=== PATIENT | female | born 1980 | race Caucasian/White ===

== ENCOUNTER → 2017-04-23 | Outpatient (CLI) | payer BC ==
[~2017-04-23] MED LIST: CRAN1CAP15; FRRS300 PO; HYDR-5688 PO; LABE100T23 PO; MISCCAP80; PRENTAB65 PO; PRLSR20 PO
== END | disposition home or self-care (01) ==
LOC: C.PAPS 11:15
PROVIDERS: ATTEND Obstetrics & Gynecology
DX: Z01.419 Encounter for gynecological examination (general) (routine) without abnormal findings (principal); N87.0 Mild cervical dysplasia

== ENCOUNTER → 2018-06-20 | Outpatient (CLI) | payer BC ==
[~2018-06-20] MED LIST changes: -LABE100T23 PO; +LABE100T3 PO
== END | disposition home or self-care (01) ==
LOC: C.LAB1850 07:51
PROVIDERS: ATTEND Obstetrics & Gynecology
DX: O16.1 Unspecified maternal hypertension, first trimester (principal); Z3A.00 Weeks of gestation of pregnancy not specified

== ENCOUNTER 2019-01-02 05:30 | Inpatient (IN) ==
--- NOTE | 2018-12-28 14:19 | PAT Medication Instructions ---
Medication Instructions Date of Service December 28, 2018 Home Medications aspirin 81 mg PO DAILY cranberry 400 mg PO DAILY labetalol 100 mg PO BID omeprazole 20 mg PO DAILY [ Vitamin] 1 tab PO DAILY valacyclovir 500 mg PO DAILY ASK your surgeon for instructions aspirin 81 mg PO DAILY DO NOT take the morning of surgery cranberry 400 mg PO DAILY [ Vitamin] 1 tab PO DAILY Take morning of surgery With a small sip of water, OTHERWISE NOTHING TO EAT OR DRINK AFTER MIDNIGHT: labetalol 100 mg PO BID omeprazole 20 mg PO DAILY valacyclovir 500 mg PO DAILY Take evening before surgery labetalol 100 mg PO BID Other Notes If you have any questions please call us at [phone] or [phone] or [phone] or [phone]
--- NOTE | 2018-12-28 16:25 | Anesthesiology Consultation ---
Date of Service December 28, 2018 Assessment & Plan (1) Encounter for pre-operative examination: Chart Review Chart Review: Acceptable Risk for Surgery and Patient seen in Pre Admission Testing Teaching & Discussion Instructed NPO after midnight before surgery, except medications with 15 cc of water. Medication instructions provided according to the PAT guidelines. History Surgery Operation Date: 01/02/19 07:30 Proposed Procedures p Section in LD - Adams Zarate Jr, MD, FACOG Height/Weight Height: 5 ft 4 in Weight: 115.5 kg Allergies Allergy/AdvReac Type Severity Reaction Status Date / Time oxycodone Allergy Intermediate ITCHING Verified 12/21/18 09:36 yellow dye Allergy Intermediate Rash Verified 12/21/18 09:36 lisinopril AdvReac Intermediate COUGH Verified 12/21/18 09:36 Medications Home Medications Medication Instructions Recorded Confirmed Last Taken aspirin 81 mg PO DAILY 12/18/18 12/21/18 12/18/18 08:00 cranberry 400 mg PO DAILY 12/18/18 12/21/18 12/18/18 08:00 labetalol 100 mg PO BID 12/18/18 12/21/18 12/18/18 08:00 omeprazole 20 mg PO DAILY 12/18/18 12/21/18 12/18/18 08:00 vit [id number] 1 tab PO DAILY 12/18/18 12/21/18 12/18/18 08:00 [ Vitamin] valacyclovir 500 mg PO DAILY 12/21/18 12/21/18 Unknown Past Medical History Medical History Acid reflux since age 19- uses Omeprazole daily Anxiety and depression no meds for last few years. last used meds in 2012 Chronic headaches states she gets 3-4/ month and relieved by Tylenol Essential (primary) hypertension Treated for prior to and during . Has been on ASA 81 and Labetolol in Past Surgical History Surgical History Previous section January 31, 2016 [place] teeth removed age 15 Past Anesthesia History No Hx of Anesthesia Complications and No Family Hx of Anesthesia Complications Previous C/S done 2016 at [facility] for D-cels, epidural dosed for spinal anesthesia. Pt reports nausea during C/S but no major complications. History of PONV No Motion Sickness Screening History of Motion Sickness: Yes Social History Smoking Status: Never smoker Do You Dip or Chew Tobacco: No Hx Alcohol Use: No Alcohol Intake Frequency Comment: 0 Hx Substance Use: No substance use type: does not use Exercise / Class Metabolic Activity III < 4 Walking/Shop/Light housework (IN , +SOB with flight of stairs, no CP.) Review of Systems Pt denies any recent chest pain, shortness of breath, palpitations, cough, fever or URI. Physical Exam Vital Signs BP: 111/74 P: 97bpm SPO2: 97% RA T: 98.0 R: 16 Constitutional + obese ENMT Thyromental Distance: > or= 3.5 Finger Breadths (4) Mallampati Class: I Neck normal visual inspection; neck extension not limited Respiratory normal respiratory effort Auscultation: lungs clear to auscultation bilaterally Cardiovascular Rate/Rhythm: regular rate and regular rhythm Heart Sounds: no murmur
--- NOTE | 2018-12-28 17:36 | History and Physical Report ---
DATE OF ADMISSION: 01/02/2019 ADMITTING DIAGNOSES: 1. Complicated at 39 weeks gestational age. 2. Chronic hypertension. 3. Previous section for advanced maternal age. ADMISSION HISTORY: The patient is a 38-year-old 2, para 1 with an EDC of 08 January by dates and first trimester ultrasound who is admitted for repeat section. The patient's first ended in section. She had been counseled on the risks and benefits of an attempted vaginal after and has opted for an elective repeat section. The patient's course is remarkable for chronic hypertension. She has been on labetalol 100 mg b.i.d. throughout the . The patient has been followed with the chronic hypertensive protocol. She has had serial ultrasounds for growth which have been reassuring and she has had normal third trimester testing. Laboratory values for the show a blood type of O positive, antibody negative, rubella immune, hepatitis B negative. She had a negative cell free DNA screening. She had a normal 1 hour Glucola x2 and a negative third trimester beta strep culture. PAST MEDICAL HISTORY: OBSTETRICAL: As above. COOPERATIVE EDUCATION COORDINATOR: Abnormal Pap smear. MEDICAL: Kidney stones, migraine headaches, anxiety, acid reflux. SURGICAL: Colposcopy, wisdom teeth extraction. ALLERGIES: PERCOCET, YELLOW DYES, AND LISINOPRIL. SOCIAL HISTORY: No smoking. FAMILY HISTORY: Noncontributory. REVIEW OF SYSTEMS: As per HPI. ADMISSION PHYSICAL EXAMINATION: GENERAL: Today shows a pleasant female, gravid, in no acute distress. VITAL SIGNS: Blood pressure of 124/76 and a weight of 255 pounds. HEENT EXAMINATION: Unremarkable. NECK: Supple. LUNGS: Clear. HEART: With a regular rhythm and rate. ABDOMEN: Gravid, vertex, positive heart tones, estimated weight of 8 pounds. PELVIC: Shows the cervix to be long, thick and closed. EXTREMITIES: Shows no deep calf tenderness. NEUROLOGIC: Grossly intact. IMPRESSION: A 38-year-old 2, para 1, 39 weeks gestational age for repeat section. PLAN: Risks, benefits and alternatives to the surgery have been discussed. While benefits will be delivery of the infant, the risks are bleeding, infection, inadvertent injury to bowel or bladder. The patient understands this. Permit has been signed and she wishes to proceed.
[2019-01-02] MEDS ORDERED: LACTATED RINGER'S 1,000 ML IV SCH ×3 (05:45→12:35)
[2019-01-02 05:55] LABS: Basophils # (auto) 0.03 K/uL (0-0.2); Basophils % (auto) 0.2 %; Eosinophils # (auto) 0.15 K/uL (0-0.5); Eosinophils % (auto) 1.2 %; Hematocrit (blood only) 36.6 % (37-47); Hemoglobin 12.5 g/dL (12.0-16.0); Immature Granulocytes # (auto) 0.05 K/uL (0.00-0.02); Immature Granulocytes % (auto) 0.4 %; Lymphocytes # (auto) 2.89 K/uL (1.2-3.4); Lymphocytes % (auto) 23.6 %; Mean Corpuscular Volume 94.1 fL (80-100); Monocytes # (auto) 0.72 K/uL (0.11-0.59); Monocytes % (auto) 5.9 %; Neutrophils # (auto) 8.42 K/uL (1.4-6.5); Neutrophils % (auto) 68.7 %; Platelet Count 234 K/uL (130-400); RDW Coefficient of Variation 14.3 % (11.5-14.5); RDW Standard Deviation 48.5 fL (36.4-46.3); Red Blood Count 3.89 M/uL (4.2-5.4); White Blood Count 12.26 K/uL (4.8-10.8)
[2019-01-02 05:56] LABS: Mean Corpuscular Hgb Conc 34.2 g/dL (32-36)
[2019-01-02] MEDS ORDERED: CITRIC ACID/SODIUM CITRATE 15 ML UDC PO SCH ×2 (06:00)
[2019-01-02] MEDS ORDERED: CEFAZOLIN 3,000 MG in DEXTROSE 5% 50 ML IV SCH (06:00)
[2019-01-02] MEDS ORDERED: OXYTOCIN 10 UNITS/ML VIAL ONE ×3 (06:30)
[2019-01-02] MEDS ORDERED: PHENYLEPHRINE HCL 10 MG/ML VIAL ONE (06:30)
[2019-01-02] MEDS ORDERED: ePHEDrine sulfate 50 MG/ML AMP ONE (06:31)
[2019-01-02] MEDS ORDERED: MoRPHine SULFATE PF 1 MG/ML 10 ML AMP/VIAL ONE (06:50)
[2019-01-02] MEDS ORDERED: fentaNYL citrate 100 MCG/2 ML VIAL ONE (06:50)
[2019-01-02] MEDS ORDERED: PROMETHAZINE HCL 12.5 MG in SODIUM CHLORIDE 0.9% 50 ML IV PRN (07:06)
[2019-01-02] MEDS ORDERED: ONDANSETRON INJ 2 MG/ML 2 ML VIAL IV PRN ×2 (07:06→13:29)
[2019-01-02] MEDS ORDERED: PHENYLEPHRINE 100MCG/ML 5ML SYR IV PRN (07:06)
[2019-01-02] MEDS ORDERED: ATROPINE SULFATE 0.1 MG/ML 10ML SYR IV PRN (07:06)
[2019-01-02] MEDS ORDERED: ePHEDrine sulfate 50 MG/ML AMP IV PRN ×3 (07:06→13:29)
--- NOTE | 2019-01-02 07:16 | History & Physical Bridge Note ---
Date of Service January 02, 2019 History & Physical Bridge Note I have examined the patient, reviewed the History & Physical and in the interval since the performance of the History & Physical I have noted the following changes of clinical significance: no changes noted
[2019-01-02] MEDS ORDERED: NALOXONE HCL 0.4 MG/1 ML VIAL/CARP IV PRN ×2 (07:58→13:29)
[2019-01-02] MEDS ORDERED: MEPERIDINE HCL 25 MG/ML CARP IV PRN ×2 (07:58→13:29)
[2019-01-02] MEDS ORDERED: MoRPHine SULFATE PF 1 MG/ML 10 ML AMP/VIAL INT SPINAL ONE ×2 (07:58→13:29)
[2019-01-02] MEDS ORDERED: LACTATED RINGER'S 500 ML IV PRN ×2 (07:58→13:29)
[2019-01-02] MEDS ORDERED: NALBUPHINE HCL INJ 10 MG/ML AMP IV PRN ×2 (07:58→13:29)
[2019-01-02] MEDS ORDERED: DiphenhydrAMINE HCL 50 MG/ML VIAL IV PRN ×2 (07:58→13:29)
[2019-01-02] MEDS ORDERED: NALOXONE HCL 0.08 MG in SYRINGE 1.8 ML IV PRN ×2 (07:58→13:29)
[2019-01-02] MEDS ORDERED: NALOXONE HCL 1 MG in SODIUM CHLORIDE 0.9% 1000ML 1,000 ML IV PRN ×2 (07:58→13:29)
[2019-01-02] MEDS ORDERED: MoRPHine SULFATE 4 MG/ML 1 ML CARP\\VIAL IV PRN (07:58)
[2019-01-02] MEDS ORDERED: DC INTRASPINAL MORPHINE SCH ×2 (08:00→13:30)
[2019-01-02] MEDS ORDERED: SODIUM CHLORIDE 0.9% 1000ML 1,000 ML IV SCH ×2 (08:00→13:30)
[2019-01-02] MEDS ORDERED: NO NARCOTICS OR SEDATIVES SCH ×2 (08:00→13:30)
--- NOTE | 2019-01-02 08:35 | Post Operative Brief Note ---
Immediate Post Op Note v1 Date of Surgery January 02, 2019 Pre & Post Diagnosis Operation Date: 01/02/19 07:30 Pre-Op Diagnosis: Term , previous section. Chronic Hypertension. Post-Op Diagnosis: Same Procedure Operation Date: 01/02/19 07:30 Actual Procedures p Section in LD(Bilateral) - Adams Zarate Jr, MD, FACOG Surgeon Adams Zarate Jr, MD, FACOG [employer] Liza Estimated Blood Loss 800 Findings See Below (Viable female infant, Apgars 9/9, weight 8 lbs 14 oz, gasses pending , normal appearing tubes and ovaries bilaterally) Drains Snow Catheter (inserted after spinal, draining clear yellow urine)
[2019-01-02 09:05] LABS: Base Excess Cord Venous Blood -3.1 mEq/L (-7.7-1.9); CO2 Cord Arterial Blood 73 mmHg (39.1-73.5); Cord Venous Blood HCO3 25 mmol/L (18.4-26.8); Cord Venous Blood PCO2 55 mmHg (30.4-57.2); Cord Venous Blood PO2 29 mmHg (14.1-43.3); Cord Venous Blood pH 7.27 (7.20-7.44); HCO3 Cord Arterial Blood 27 mmol/L (19.7-28.5); pH Cord Arterial Blood 7.19 (7.1-7.38)
[2019-01-02] MEDS: KETOROLAC 30 MG/ML VIAL IV PRN ×3 (10:07→23:54)
[2019-01-02] MEDS: OXYTOCIN 20 UNITS in LACTATED RINGER'S 1,000 ML IV SCH ×2 (10:26→16:57)
--- NOTE | 2019-01-02 10:57 | Anesthesiology Progress Note ---
Date of Service January 02, 2019 Anesthesia Post Procedure Vital Signs Vital Signs: Temp Pulse Resp BP Pulse Ox 01/02/19 10:53 75 93 01/02/19 10:48 78 94 01/02/19 10:43 75 94 01/02/19 10:38 70 93 01/02/19 10:33 79 96 01/02/19 10:32 77 139/89 01/02/19 10:28 76 96 01/02/19 10:23 71 95 01/02/19 10:18 79 92 01/02/19 10:13 75 93 01/02/19 10:10 73 91 01/02/19 10:08 70 96 01/02/19 10:03 77 97 01/02/19 10:02 89 138/81 01/02/19 09:58 74 95 01/02/19 09:53 70 94 01/02/19 09:48 70 95 01/02/19 09:43 82 96 01/02/19 09:38 77 97 01/02/19 09:33 79 97 01/02/19 09:32 81 136/92 01/02/19 09:28 75 96 01/02/19 09:23 80 96 01/02/19 09:22 89 133/88 01/02/19 09:18 83 94 01/02/19 09:13 76 96 01/02/19 09:12 76 130/79 01/02/19 09:08 80 94 01/02/19 09:07 90 86 L 01/02/19 09:02 81 135/74 96 01/02/19 08:57 87 94 01/02/19 08:56 87 90 01/02/19 08:52 73 131/73 96 01/02/19 08:47 78 94 01/02/19 08:43 74 94 01/02/19 08:42 74 128/75 94 01/02/19 05:44 36.6 C 18 01/02/19 05:41 89 121/68 Notes Mental Status: alert / awake / arousable Patient Amnestic to Procedure: Yes Nausea / Vomiting: adequately controlled Pain: adequately controlled Airway Patency, RR, SpO2: stable & adequate BP & HR: stable & adequate Neuraxial Anesthesia: was administered and sensory block is resolving Anesthetic Complications: no major complications apparent Notes: Doing well, no complaints. VSS.
[2019-01-02] MEDS ORDERED: SUPERCREAM 0.870% 15 GM JAR EXT PRN (12:35)
[2019-01-02] MEDS ORDERED: HYDROCORTISONE ACETATE 25 MG SUPP PR PRN (12:35)
[2019-01-02] MEDS ORDERED: OXYTOCIN 20 UNITS in LACTATED RINGER'S 1,000 ML IV SCH (12:35)
[2019-01-02] MEDS ORDERED: DIPHTHERIA/TETANUS/PERTUSSIS 0.5 ML SYR/VIAL IM ONE (12:35)
[2019-01-02] MEDS ORDERED: BENZOCAINE 20% AER SPR 82.5 GM CAN EXT PRN (12:35)
[2019-01-02] MEDS ORDERED: MoRPHine SULFATE 2 MG/ML CARP IV PRN (13:29)
[2019-01-02] MEDS ORDERED: PROMETHAZINE HCL 25 MG in SODIUM CHLORIDE 0.9% 50 ML IV PRN (13:29)
[2019-01-02] MEDS ORDERED: KETOROLAC 30 MG/ML VIAL IV PRN (14:21)
[2019-01-02] MEDS: LABETALOL HCL 100 MG TAB PO SCH (20:31)
--- NOTE | 2019-01-02 23:02 | Operative Report ---
DATE OF OPERATION: 01/02/2019 PREOPERATIVE DIAGNOSES: 1. Term . 2. Previous section. 3. Chronic hypertension of . POSTOPERATIVE DIAGNOSES: 1. Term . 2. Previous section. 3. Chronic hypertension of . PROCEDURE PERFORMED: Repeat low cervical transverse section. SURGEON: Adams Zarate MD [employer] EMBOSSING PRESS OPERATOR: Melinda De Jesus DO ANESTHESIA: Spinal. FINDINGS: Viable female with Apgars of 9 and 9 and weight of 8 pounds 14 ounces. Arterial and venous cord gases are pending. Normal-appearing tubes and ovaries bilaterally. PROCEDURE IN DETAIL: The patient was taken to the operating room. After spinal anesthesia, he was placed in supine position, draped and prepped in the usual fashion. Pfannenstiel-type incision through previous surgical scar was made. Underlying subcutaneous tissue was dissected down to the ventral abdominal fascia, which was nicked and opened in a horizontal manner. Preperitoneal fascia was dissected away until the peritoneal cavity was entered and opened in a vertical manner. Bladder blade was placed. Peritoneum overlying the uterus was elevated, opened in a semi-lunar fashion, the inferior margin of which was taken down creating the bladder flap. The uterus was entered sharply and extended in a semilunar fashion manually for artificial rupture of membranes for clear fluid. Nuchal cord x1 reduced. Baby was delivered. Cord was clamped and cut and the baby was passed off to pediatrics who was in attendance for the delivery. Cord gases and cord blood samples obtained. Placenta was delivered spontaneously and the uterus was exteriorized. The uterine cavity was wiped clean of any residual blood tissue and/or clot. Uterine incision was then closed with 2 layers of 4-0 Vicryl, the first a running locking stitch, the second an imbricating stitch. Hemostasis achieved. The adnexa visualized with description as above. The uterus was returned to the pelvic cavity. The pericolic gutters were cleared bilaterally of any blood tissue and/or clot. Uterine incision was inspected for hemostasis again, which was present. Sponge and needle count was correct at this point the rectus muscles were plicated in the midline with a running 2-0 Vicryl suture. The fascia was closed laterally with a running 0 Vicryl stitch. Subcutaneous tissue was irrigated with warm saline and reapproximated with interrupted 2-0 plain sutures. Skin incision was closed with 4-0 Monocryl subcuticular sutures. Sterile dressing was applied. The patient was taken to recovery room in satisfactory condition. I attest to the content of the Intraoperative Record and any orders documented therein. Any exception s are noted below.
[2019-01-03] MEDS ORDERED: DiphenhydrAMINE HCL 50 MG/ML VIAL IV PRN (01:59)
[2019-01-03] MEDS ORDERED: ONDANSETRON INJ 2 MG/ML 2 ML VIAL IV PRN (01:59)
[2019-01-03] MEDS ORDERED: KETOROLAC 30 MG/ML VIAL IV PRN (01:59)
[2019-01-03] MEDS: ACETAMINOPHEN W/CODEINE #3 1 TAB PO PRN ×2 (04:40→09:04)
--- NOTE | 2019-01-03 06:31 | Obstetrical Progress Note ---
Date of Service <Vipul Diaz MD - Last Filed: 01/03/19 06:31> January 03, 2019 Assessment & Plan <Vipul Diaz MD - Last Filed: 01/03/19 06:31> (1) S/P repeat low transverse : Chelsey is a 38yo who presented at 39+ for repeat c/s now POD#1 - Compression dressing removed during exam. Surgical incision healing well without any dehiscence/warmth/erythema/discharge. - Blood type O+, Ab-, RI, GBS- - Feels well today. Ambulating well. Mosher removed this AM, has not voided since removal. +flatus - Clear liquids last night, tolerated well. Continue to advance diet as tolerated. - without difficulty. - Pain well controlled with ibuprofen 600mg Q4H PRN. - Routine postop care - After discharge will have [address] Zarate. (2) with 39 completed weeks gestation: Subjective <Vipul Diaz MD - Last Filed: 01/03/19 06:31> Ambulation: ambulating normally Voiding: voiding difficulty (mosher removed this morning, has not voided yet since removal) Passing Gas:: Yes Diet Tolerance:: clear liquids Lochia:: Moderate Feeding Type:: breast feeding Current Pain Level(1-10): 5 (improves with rx) Review of Systems Denies fever, chills, sweats Denies shortness of breath, difficulty breathing, chest pain, palpitations, chest pressure. Denies breast pain. Denies dysuria. Denies headache. Physical Exam <Vipul Diaz MD - Last Filed: 01/03/19 06:31> Vital Signs (Past 24 Hours) Last Vital Signs Temp 36.6 C 01/03/19 03:05 Pulse 83 01/03/19 03:05 Resp 18 01/03/19 03:05 BP 102/66 01/03/19 03:05 Pulse Ox 97 01/03/19 03:05 General: Alert, oriented. No acute distress. Cardiac: Regular rate and rhythm, no murmurs/rubs/gallops. Respiratory: Clear to auscultation anterior and posteriorly, no wheezes/rales/ rhonchi. No increased work of breathing. Symmetrical chest rise. No respiratory distress. Abdomen: Soft, nontender, nondistended. Bowel sounds present. Uterus: Uterine fundus firm, palpable 1-2cm below umbilicus. Compression dressing C/D/I, removed during exam. Surgical incision healing well without any dehiscence/warmth/erythema/discharge. Lower Extremities: No lower extremity edema or swelling. No deep calf pain. Florinda's negative bilaterally. <Krista Corrales MD, FACOG - Last Filed: 01/03/19 07:53> Co-Signing Physician Notes Resident Physician Supervision Note: I interviewed and examined the patient. Discussed with Dr. Diaz and agree with findings and plan as documented in the note. Any exceptions or clarifications are listed here: [None] Documented By: Krista Corrales MD, FACOG Resident Activity Tracking <Vipul Diaz MD - Last Filed: 01/03/19 06:31> Resident Involvement: Resident Care Provided Care Provided: Adult Hospital Medicine
[2019-01-03 07:24] LABS: Basophils # (auto) 0.02 K/uL (0-0.2); Basophils % (auto) 0.1 %; Eosinophils # (auto) 0.12 K/uL (0-0.5); Eosinophils % (auto) 0.7 %; Hematocrit (blood only) 32.6 % (37-47); Immature Granulocytes # (auto) 0.06 K/uL (0.00-0.02); Immature Granulocytes % (auto) 0.4 %; Lymphocytes # (auto) 2.55 K/uL (1.2-3.4); Lymphocytes % (auto) 15.6 %; Mean Corpuscular Hgb Conc 33.7 g/dL (32-36); Mean Corpuscular Volume 93.4 fL (80-100); Mean Platelet Volume 9.9 fL (7.4-10.4); Monocytes # (auto) 1.09 K/uL (0.11-0.59); Monocytes % (auto) 6.7 %; Neutrophils # (auto) 12.49 K/uL (1.4-6.5); Neutrophils % (auto) 76.5 %; Platelet Count 243 K/uL (130-400); RDW Coefficient of Variation 14.3 % (11.5-14.5); RDW Standard Deviation 48.4 fL (36.4-46.3); Red Blood Count 3.49 M/uL (4.2-5.4); White Blood Count 16.33 K/uL (4.8-10.8)
--- NOTE | 2019-01-03 08:32 | Anesthesiology Progress Note ---
Date of Service January 03, 2019 Anesthesia Post Procedure Vital Signs Vital Signs: Temp Pulse Pulse Resp BP BP Pulse Ox 01/03/19 03:05 36.6 C 83 18 102/66 97 01/03/19 02:30 18 97 01/03/19 01:30 18 95 01/03/19 00:32 18 96 01/02/19 23:45 36.8 C 84 18 111/70 96 01/02/19 23:10 16 96 01/02/19 22:20 18 95 01/02/19 21:30 16 94 01/02/19 20:40 36.8 C 78 18 123/71 95 01/02/19 20:30 18 95 01/02/19 19:50 20 95 01/02/19 18:50 18 94 01/02/19 17:50 18 96 01/02/19 16:50 20 95 01/02/19 15:45 36.8 C 84 18 130/77 95 01/02/19 15:15 18 96 01/02/19 14:50 18 94 01/02/19 13:50 18 94 01/02/19 12:50 16 93 01/02/19 12:35 36.7 C 79 14 107/62 96 01/02/19 11:50 36.8 C 80 18 124/79 94 01/02/19 11:38 81 93 01/02/19 11:33 80 93 01/02/19 11:32 75 138/78 01/02/19 11:28 77 96 01/02/19 11:23 77 95 01/02/19 11:18 81 96 01/02/19 11:13 75 93 01/02/19 11:08 77 92 01/02/19 11:03 86 93 01/02/19 11:02 76 142/82 H 01/02/19 10:59 34.7 C L 01/02/19 10:58 72 93 01/02/19 10:53 75 93 01/02/19 10:48 78 94 01/02/19 10:43 75 94 01/02/19 10:42 20 01/02/19 10:38 70 93 01/02/19 10:33 79 96 01/02/19 10:32 77 139/89 01/02/19 10:28 76 96 01/02/19 10:23 71 95 01/02/19 10:18 79 92 01/02/19 10:13 75 93 01/02/19 10:12 20 01/02/19 10:10 73 91 01/02/19 10:08 70 96 01/02/19 10:03 77 97 01/02/19 10:02 89 138/81 01/02/19 09:58 74 95 01/02/19 09:53 70 94 01/02/19 09:48 70 95 01/02/19 09:43 82 96 01/02/19 09:42 20 01/02/19 09:38 77 97 01/02/19 09:33 79 97 01/02/19 09:32 81 20 136/92 01/02/19 09:28 75 96 01/02/19 09:23 80 96 01/02/19 09:22 89 20 133/88 01/02/19 09:18 83 94 01/02/19 09:13 76 96 01/02/19 09:12 76 20 130/79 01/02/19 09:08 80 94 01/02/19 09:07 90 86 L 01/02/19 09:02 81 20 135/74 96 01/02/19 08:57 87 94 01/02/19 08:56 87 90 01/02/19 08:52 73 20 131/73 96 01/02/19 08:47 78 94 01/02/19 08:43 74 94 01/02/19 08:42 74 20 128/75 94 Pulse Ox 01/03/19 03:05 01/03/19 02:30 01/03/19 01:30 01/03/19 00:32 01/02/19 23:45 01/02/19 23:10 01/02/19 22:20 01/02/19 21:30 01/02/19 20:40 01/02/19 20:30 01/02/19 19:50 01/02/19 18:50 01/02/19 17:50 01/02/19 16:50 01/02/19 15:45 01/02/19 15:15 01/02/19 14:50 01/02/19 13:50 01/02/19 12:50 01/02/19 12:35 01/02/19 11:50 94 01/02/19 11:38 01/02/19 11:33 01/02/19 11:32 01/02/19 11:28 01/02/19 11:23 01/02/19 11:18 01/02/19 11:13 01/02/19 11:08 01/02/19 11:03 01/02/19 11:02 01/02/19 10:59 01/02/19 10:58 01/02/19 10:53 01/02/19 10:48 01/02/19 10:43 01/02/19 10:42 01/02/19 10:38 01/02/19 10:33 01/02/19 10:32 01/02/19 10:28 01/02/19 10:23 01/02/19 10:18 01/02/19 10:13 01/02/19 10:12 01/02/19 10:10 01/02/19 10:08 01/02/19 10:03 01/02/19 10:02 01/02/19 09:58 01/02/19 09:53 01/02/19 09:48 01/02/19 09:43 01/02/19 09:42 01/02/19 09:38 01/02/19 09:33 01/02/19 09:32 01/02/19 09:28 01/02/19 09:23 01/02/19 09:22 01/02/19 09:18 01/02/19 09:13 01/02/19 09:12 01/02/19 09:08 01/02/19 09:07 01/02/19 09:02 01/02/19 08:57 01/02/19 08:56 01/02/19 08:52 01/02/19 08:47 01/02/19 08:43 01/02/19 08:42 Pain Intensity Medial Abdomen: Pain Intensity: 4 Notes Mental Status: alert / awake / arousable Patient Amnestic to Procedure: Yes Nausea / Vomiting: adequately controlled Pain: adequately controlled Airway Patency, RR, SpO2: stable & adequate BP & HR: stable & adequate Hydration State: stable & adequate Neuraxial Anesthesia: was administered and sensory block resolved Anesthetic Complications: no major complications apparent and Pt Satisfied with anesthetic care Notes: Patient is POD #1 s/p C section
[2019-01-03] MEDS: PRENATAL VITAMIN 1 TAB PO SCH ×2 (09:02)
[2019-01-03] MEDS: LABETALOL HCL 100 MG TAB PO SCH ×3 (09:03→20:40)
[2019-01-03] MEDS: FERROUS SULFATE 325 MG TAB PO SCH ×2 (09:04)
[2019-01-03] MEDS: IBUPROFEN 600 MG TAB PO PRN (10:53)
[2019-01-03] MEDS: HYDROCODONE/ACETAMOPHEN 5/325MG TAB PO PRN ×3 (11:56→23:57)
[2019-01-03] MEDS: MAGNESIUM HYDROXIDE SUSP 30 ML UDC PO SCH (20:39)
[2019-01-03] MEDS: SENNA 8.6 MG TAB PO SCH (20:39)
--- NOTE | 2019-01-04 06:40 | Obstetrical Progress Note ---
Date of Service <Vipul Diaz MD - Last Filed: 01/04/19 06:40> January 04, 2019 Assessment & Plan <Vipul Diaz MD - Last Filed: 01/04/19 06:40> (1) S/P repeat low transverse : Chelsey is a 38yo who presented at 39+ for repeat c/s now POD#2 - Surgical incision healing well without any dehiscence/warmth/erythema/ discharge. - Blood type O+, Ab-, RI, GBS- - Feels well today. Eating well. Ambulating well. Voiding well. - Concerns of weight loss of the baby, has switched to pumping + bottle feeds. - Pain well controlled with ibuprofen 600mg Q4H PRN. - Routine postop care - After discharge will have [address] Zarate. (2) with 39 completed weeks gestation: Subjective <Vipul Diaz MD - Last Filed: 01/04/19 06:40> Ambulation: ambulating normally Voiding: no voiding problems Passing Gas:: Yes Diet Tolerance:: regular diet Lochia:: Moderate Feeding Type:: bottle feeding (Concern over weight loss of baby by peds, switched to pumping + formula last night) Current Pain Level(1-10): 2 (improved with rx) Review of Systems Denies fever, chills, sweats Denies shortness of breath, difficulty breathing, chest pain, palpitations, chest pressure. Denies breast pain. Denies dysuria. Denies headache. Physical Exam <Vipul Diaz MD - Last Filed: 01/04/19 06:40> Vital Signs (Past 24 Hours) Last Vital Signs Temp 36.4 C L 01/03/19 23:25 Pulse 80 01/03/19 23:25 Resp 18 01/03/19 23:25 BP 134/86 01/03/19 23:25 Pulse Ox 97 01/03/19 03:05 General: Alert, oriented. No acute distress. Cardiac: Regular rate and rhythm, no murmurs/rubs/gallops. Respiratory: Clear to auscultation anterior and posteriorly, no wheezes/rales/ rhonchi. No increased work of breathing. Symmetrical chest rise. No respiratory distress. Abdomen: Soft, nontender, nondistended. Bowel sounds present. Uterus: Uterine fundus firm, palpable 1-2cm below umbilicus. Surgical incision healing well without any dehiscence/warmth/erythema/discharge. Lower Extremities: No lower extremity edema or swelling. No deep calf pain. Florinda's negative bilaterally. <Yee English MD, FACOG - Last Filed: 01/04/19 08:00> Co-Signing Physician Notes Resident Physician Supervision Note: I interviewed and examined the patient. Discussed with Dr. Diaz and agree with findings and plan as documented in the note. Any exceptions or clarifications are listed here: [None] Documented By: Yee English MD, FACOG Resident Activity Tracking <Vipul Diaz MD - Last Filed: 01/04/19 06:40> Resident Involvement: Resident Care Provided Care Provided: Adult Hospital Medicine
[2019-01-04 07:02] LABS: Hematocrit (blood only) 34.3 % (37-47); Hemoglobin 11.5 g/dL (12.0-16.0)
[2019-01-04] MEDS: HYDROCODONE/ACETAMOPHEN 5/325MG TAB PO PRN ×3 (07:24→19:34)
[2019-01-04] MEDS: IBUPROFEN 600 MG TAB PO PRN ×3 (07:26→19:33)
[2019-01-04] MEDS: SIMETHICONE 80 MG CHEW PO PRN ×2 (09:03→13:11)
[2019-01-04] MEDS: LABETALOL HCL 100 MG TAB PO SCH ×2 (09:04→20:48)
[2019-01-04] MEDS: FERROUS SULFATE 325 MG TAB PO SCH (09:04)
[2019-01-04] MEDS: PRENATAL VITAMIN 1 TAB PO SCH (09:04)
[2019-01-04] MEDS ORDERED: CALCIUM CARBONATE 500 MG CHEWABLE TAB PO PRN (17:19)
[2019-01-04] MEDS: SENNA 8.6 MG TAB PO SCH (20:48)
[2019-01-04] MEDS: MAGNESIUM HYDROXIDE SUSP 30 ML UDC PO SCH (20:48)
[2019-01-05] MEDS: HYDROCODONE/ACETAMOPHEN 5/325MG TAB PO PRN ×2 (01:15→07:55)
[2019-01-05] MEDS: IBUPROFEN 600 MG TAB PO PRN ×2 (01:15→07:54)
--- NOTE | 2019-01-05 06:23 | Obstetrical Progress Note ---
Date of Service <Vipul Diaz MD - Last Filed: 01/05/19 06:23> January 05, 2019 Assessment & Plan <Vipul Diaz MD - Last Filed: 01/05/19 06:23> (1) S/P repeat low transverse : Chelsey is a 38yo who presented at 39+ for repeat c/s now POD#3 - Surgical incision healing well without any dehiscence/warmth/erythema/ discharge. - Blood type O+, Ab-, RI, GBS- - Feels well today. Eating well. Ambulating well. Voiding well. - Breast feeding with bottle feed supplementation - Pain well controlled with hydrocodone/APAP Q6H (allergic to oxycodone) - Routine postop care - After discharge will have [address] Zarate. - Discharge counseling provided for bleeding, vaginal care, mastitis, intercourse, and post depression (2) with 39 completed weeks gestation: Subjective <Vipul Diaz MD - Last Filed: 01/05/19 06:23> Ambulation: ambulating normally Voiding: no voiding problems Passing Gas:: Yes Diet Tolerance:: regular diet Lochia:: Small Feeding Type:: breast feeding (with bottle supplementation) Current Pain Level(1-10): 4 (improved with hydrocodone/apap) Review of Systems Denies fever, chills, sweats Denies shortness of breath, difficulty breathing, chest pain, palpitations, chest pressure. Denies breast pain. Denies dysuria. Denies headache. Physical Exam <Vipul Diaz MD - Last Filed: 01/05/19 06:23> Vital Signs (Past 24 Hours) Last Vital Signs Temp 36.6 C 01/05/19 01:20 Pulse 69 01/05/19 01:20 Resp 18 01/05/19 01:20 BP 126/85 01/05/19 01:20 Pulse Ox 97 01/04/19 19:15 General: Alert, oriented. No acute distress. Cardiac: Regular rate and rhythm, no murmurs/rubs/gallops. Respiratory: Clear to auscultation anterior and posteriorly, no wheezes/rales/ rhonchi. No increased work of breathing. Symmetrical chest rise. No respiratory distress. Abdomen: Soft, nontender, nondistended. Bowel sounds present. Uterus: Uterine fundus firm, palpable 3cm below umbilicus. Surgical incision well healing, no erythema/discharge/dehiscence. Mild tenderness at surgical site. Lower Extremities: No lower extremity edema or swelling. No deep calf pain. Florinda's negative bilaterally. <Adams Zarate Jr, MD, FACOG - Last Filed: 01/05/19 07:41> Co-Signing Physician Notes Resident Physician Supervision Note: I was present with Dr. Carmen during the history and exam. I discussed the case with the resident and agree with the findings and plan as documented in the note. Any exceptions or clarifications are listed here: Patient ready for d /c. Instructions given, f/u 2 weeks for incision check Documented By: Adams Zarate Jr, MD, FACOG Resident Activity Tracking <Vipul Diaz MD - Last Filed: 01/05/19 06:23> Resident Involvement: Resident Care Provided Care Provided: Adult Hospital Medicine
[2019-01-05] MEDS: FERROUS SULFATE 325 MG TAB PO SCH (07:54)
[2019-01-05] MEDS: PRENATAL VITAMIN 1 TAB PO SCH (07:54)
[2019-01-05] MEDS: LABETALOL HCL 100 MG TAB PO SCH (07:54)
[2019-01-05] MEDS ORDERED: PANTOprazole 40 MG TAB PO SCH (09:00)
--- NOTE | 2019-01-05 19:12 | Discharge Summary ---
ADMITTING DIAGNOSES: 1. Complicated at 39 weeks gestational age. 2. Chronic hypertension. 3. Previous section. 4. Advanced maternal age. DISCHARGE DIAGNOSES: 1. Complicated at 39 weeks gestational age. 2. Chronic hypertension. 3. Previous section. 4. Advanced maternal age. PROCEDURES PERFORMED: Repeat low cervical transverse section. DISCHARGE MEDICATIONS: 1. Percocet 5/325 1-2 p.o. q.4-6 hours p.r.n. pain. 2. Motrin 600 mg p.o. q. 6 hours p.r.n. pain. ADMISSION HISTORY: The patient is a 38-year-old 2, para 1 with an EDC of 01/08/2019 by dates and first trimester ultrasound who is admitted for repeat section. The patient's first ended in section. She had been counseled on the risks and benefits of an attempted vaginal after and has opted for an elective repeat . The patient's course is remarkable for chronic hypertension. She has been on labetalol 100 mg b.i.d. throughout the . The patient has been followed with chronic hypertensive protocol. She has had serial ultrasounds for growth which have been reassuring and she has had normal third trimester testing. Laboratory values for the showed a blood type of O positive, antibody negative, rubella immune, hepatitis B negative. She had a negative cell free DNA screening. She had a normal 1 hour Glucola x2 and a negative third trimester beta strep culture. ADMISSION PHYSICAL EXAMINATION: GENERAL: Showed a pleasant gravid female in no acute distress. VITAL SIGNS: Blood pressure 124/76 and a weight of 255 pounds. HEENT: Unremarkable. NECK: Supple. LUNGS: Clear. HEART: With a regular rhythm and rate. ABDOMEN: Gravid, vertex, positive heart tones, estimated weight of 8 pounds. PELVIC: Shows cervix to be long, thick, and closed. EXTREMITIES: Showed no deep calf tenderness. NEUROLOGIC: Grossly intact. ADMISSION LABORATORY VALUES: Showed an H and H of 12.5 and 36.6. HOSPITAL COURSE: On day of admission, patient was taken to the operating room, where she underwent the above-listed procedures. Operative findings showed a viable female infant with Apgars of 9 and 9 and a weight of 8 pounds 14 ounces. Normal appearing tubes and ovaries bilaterally. Postoperatively, the patient did well. Snow catheter was removed on the first postoperative day. H and H came back 11.0 and 32.6. By the 3rd postoperative day, the patient was ambulating without difficulty and tolerating a regular diet. She was discharged home with routine discharge instructions and the prescriptions for the medications as listed as above. She will follow up in the office for 2 weeks for a postoperative check but as always she has been instructed to call with any questions, problems, or difficulties.
== END 2019-01-05 11:30 | disposition home or self-care (01) | DRG 787 ==
LOC: 4S1 05:30 → EDSTATUS 07:30 → 4S2 11:51

== ENCOUNTER 2019-01-09 23:10 | Inpatient (IN) ==
[2019-01-09] MEDS ORDERED: ONDANSETRON INJ 2 MG/ML 2 ML VIAL IV STA (23:24)
[2019-01-09] MEDS ORDERED: SODIUM CHLORIDE 0.9% 1000ML 1,000 ML IV SCH (23:30)
[2019-01-09] MEDS: HYDROmorphone INJ 1 MG/ML SYRINGE IV PRN (23:34)
[2019-01-09 23:40] LABS: Basophils # (auto) 0.04 K/uL (0-0.2); Basophils % (auto) 0.4 %; Eosinophils # (auto) 0.23 K/uL (0-0.5); Eosinophils % (auto) 2.6 %; Hematocrit (blood only) 36.3 % (37-47); Hemoglobin 12.1 g/dL (12.0-16.0); Immature Granulocytes # (auto) 0.02 K/uL (0.00-0.02); Immature Granulocytes % (auto) 0.2 %; Lymphocytes # (auto) 2.62 K/uL (1.2-3.4); Lymphocytes % (auto) 29.1 %; Mean Corpuscular Hgb Conc 33.3 g/dL (32-36); Mean Corpuscular Volume 93.6 fL (80-100); Mean Platelet Volume 10.2 fL (7.4-10.4); Monocytes # (auto) 0.67 K/uL (0.11-0.59); Monocytes % (auto) 7.4 %; Neutrophils # (auto) 5.43 K/uL (1.4-6.5); Neutrophils % (auto) 60.3 %; Platelet Count 333 K/uL (130-400); RDW Coefficient of Variation 13.7 % (11.5-14.5); RDW Standard Deviation 46.9 fL (36.4-46.3); Red Blood Count 3.88 M/uL (4.2-5.4); White Blood Count 9.01 K/uL (4.8-10.8)
[2019-01-09 23:57] LABS: BUN Creatinine Ratio 29.1 (10-20); Calcium 8.2 mg/dl (8.5-10.1); Creatinine Clr Calc Pharmacy 143.3 ml/min; Est GFR (African American) 130.3; Est GFR (Non-African American) 112.4; Potassium 4.2 mmol/L (3.5-5.1)
[2019-01-10] LABS: Albumin Globulin Ratio 0.9 (0.9-2); Bilirubin,Total 0.6 mg/dl (0.2-1); Globulin 3.5 gm/dl (2.5-4.0); Total Protein 6.5 gm/dl (6.4-8.2)
[2019-01-10 00:04] LABS: iSTAT Hemoglobin 11.2 g/dl (12.0-16.0); iSTAT Ionized Calcium 1.16 mmol/l (1.12-1.32)
[2019-01-10] MEDS ORDERED: IOVERSOL 100ml IV PRN (00:18)
[2019-01-10] MEDS: HYDROmorphone INJ 1 MG/ML SYRINGE IV PRN ×4 (00:21→05:15)
[2019-01-10 01:00] LABS: Appearance Urine Clear (Clear); Bacteria Urine Automated Negative (Negative); Bilirubin Urine Negative (Negative); Color Urine Yellow; Glucose Urine UA Negative (Negative); Ketones Urine Negative (Negative); Leukocyte Esterase Urine Negative (Negative); Nitrite Urine Negative (Negative); Protein Urine Negative (Negative); Specific Gravity Urine 1.018 (1.000-1.030); Urobilinogen Urine Negative (Negative); pH Urine 7.5 (4.5-7.5)
[2019-01-10 01:28] LABS: Partial Thromboplastin Ratio 1.1; Partial Thromboplastin Time 28.2 Seconds (21.0-31.0)
--- NOTE | 2019-01-10 01:38 | Consultation ---
Date of Consultation January 10, 2019 Assessment & Plan (1) Rectus sheath hematoma: Patient with CT scan done in ER showing [id number] rectus hematoma from pubis to umbilicus with curvilinear density suggestive of active ongoing bleeding. This would be a Type 3 RSH. Although the patient is currently hemodynamically stable, her pain is increasing and her imaging shows some evidence of active bleed that is ongoing. We do not offer interventional radiology for embolization. There is currently a winter weather event which precludes either transfer of the patient or the receipt of additional blood products at our center. I believe that because of her clinical picture and our current situation, the wisest course is surgical intervention to evacuate the clot and attempt to identify and ligate any bleeding. I have asked the ER to consult general surgery. Dr. Strange is consumer educator romulo and expressed that he would usually send this to another center and does not want to operate on the patient. I have asked that he be available to assist if needed which he notes in his consultation that he will do. I have also reached out to my partners for an sales assistant entertainment and media surgeon to join me and Dr De Jesus will be arriving for that purpose. History of Present Illness Reason for Consultation: Rectus sheath hematoma s/p section. History of Present Illness 38yo who is 7 days s/p repeat section and her . She was in good health until around 8pm tonight when she had a coughing fit, and something in her abdominal wall became immediately painful to the right lower side just above her incision. The pain in that spot is hot and searing, and has progressively worsened by the hour. She is unable to sit up due to pain. (She is able to go to bathroom with a person on each side helping to roll and lift her to avoid use of abdominal muscles, but is unwilling to attempt to sit up for exam purposes due to pain.) She has not felt faint or lightheaded, and has not passed out. Voiding and stooling as normal, no change in lochia which is still light. She last breastfed the just after the pain first occurred, and would have fed around midnight but obviously did not as she is here with us. Her infant does have formula left at home from when they supplemented until her milk was fully in, and will use that tonight, but she is hopeful to continue to breastfeed. Allergies Allergy/AdvReac Type Severity Reaction Status Date / Time oxycodone Allergy Intermediate ITCHING Verified 01/10/19 00:39 yellow dye Allergy Intermediate Rash Verified 01/10/19 00:39 lisinopril AdvReac Intermediate COUGH Verified 01/10/19 00:39 Home Medications Home Medications Medication Instructions Recorded Confirmed Type labetalol 100 mg PO BID 12/18/18 01/10/19 History omeprazole 20 mg PO DAILY 12/18/18 01/10/19 History vit [id number] 1 tab PO DAILY 12/18/18 01/10/19 History [ Vitamin] Lactobacillus acidophilus 1 tab PO DAILY 01/10/19 01/10/19 History [Acidophilus] acetaminophen [Tylenol] 650 mg PO Q6H PRN 01/10/19 01/10/19 History cranberry 500 mg PO DAILY 01/10/19 01/10/19 History docusate sodium [Colace] 100 - 200 mg PO DAILY 01/10/19 01/10/19 History ibuprofen 400 mg PO Q6 PRN 01/10/19 01/10/19 History Patient History Medical History Acid reflux since age 19- uses Omeprazole daily Anxiety and depression no meds for last few years. last used meds in 2012 Chronic headaches states she gets 3-4/ month and relieved by Tylenol Essential (primary) hypertension Treated for prior to and during . Has been on ASA 81 and Labetolol in Herpes simplex type 1 infection Surgical History Previous section January 31, 2016 [place] teeth removed age 15 Family History Mother Hypertension Bicuspid aortic valve Father Cancer Social History marital status: Current Living Situation: Spouse Feels Safe at Home: Yes Smoking Status: Never smoker Second Hand Exposure: No Hx Alcohol Use: No Hx Substance Use: No Beliefs That Will Affect Care: None Preferred Language: Amharic Physical Exam 2 Vital Signs (Past 24 Hours): Last Vital Signs Temp 36.7 C 02/11/19 23:20 Pulse 63 01/10/19 00:19 Resp 18 01/10/19 00:19 BP 164/100 H 01/10/19 00:19 Pulse Ox 94 01/10/19 00:19 Constitutional: + acute distress and + morbidly obese ENMT: Ears: no hearing impairment Neck: trachea midline, no thyromegaly Respiratory: normal respiratory effort, lungs clear to auscultation Cardiovascular: RRR, no murmur, no edema Chest (Breasts): normal inspection/palpation of breasts Additional Comments : lactating. currently engorged. Gastrointestinal (Abdomen): Inspection/Auscultation: + abdomen distended Percussion/Palpation: + abdomen tender Obese. Incision c/d/i. Tender to palpation generally from umbilicus to pubis. Obesity limits my ability to evaluate. Musculoskeletal: Extremities without significant edema. Skin: no rashes, warm and dry Neurologic: patellar DTR's 2+ bilat, sensation intact Psychiatric: A+Ox3, euthymic affect Results & Data Laboratory Results Laboratory Results - last 24 hr 01/09/19 01/09/19 01/09/19 22:00 22:00 22:00 WBC 9.01 RBC 3.88 L Hgb 12.1 POC Hgb Hct 36.3 L POC Hct MCV 93.6 MCH 31.2 MCHC 33.3 RDW Std Deviation 46.9 H RDW Coeff of Yare[place] 13.7 Plt Count 333 MPV 10.2 Immature Gran % (Auto) 0.2 Neut % (Auto) 60.3 Lymph % (Auto) 29.1 [place] % (Auto) 7.4 Eos % (Auto) 2.6 Baso % (Auto) 0.4 Immature Gran # (Auto) 0.02 Neut # (Auto) 5.43 Lymph # (Auto) 2.62 [place] # (Auto) 0.67 H Eos # (Auto) 0.23 Baso # (Auto) 0.04 PT 10.0 INR 1.0 APTT 28.2 PTT Ratio 1.1 POC Sodium Sodium 137 POC Potassium Potassium 4.2 POC Chloride Chloride 106 Carbon Dioxide 23 POC Total CO2 Anion Gap 8.0 POC Anion Gap POC BUN BUN 19 H Creatinine 0.64 POC Creatinine Est Cr Clr Drug Dosing 143.3 Est GFR ( Amer) 130.3 Est GFR (Non-Af Amer) 112.4 BUN/Creatinine Ratio 29.1 H Glucose 83 POC Glucose (other) Calcium 8.2 L POC Ioniz Calcium Sebastian Total Bilirubin 0.6 AST 12 L ALT 24 Alkaline Phosphatase 98 Total Protein 6.5 Albumin 3.0 L Globulin 3.5 Albumin/Globulin Ratio 0.9 Lipase 86 Urine Color Urine Appearance Urine pH Ur Specific [place] Urine Protein Urine Glucose (UA) Urine Ketones Urine Blood Urine Nitrite Urine Bilirubin Urine Urobilinogen Ur Leukocyte Esterase Urine WBC (Auto) Urine RBC (Auto) U Hyaline Cast (Auto) U Epithel Cells (Auto) Urine Bacteria (Auto) POC Ur Test 01/09/19 01/10/19 01/10/19 23:50 00:45 00:45 WBC RBC Hgb POC Hgb 11.2 L Hct POC Hct 33 L MCV MCH MCHC RDW Std Deviation RDW Coeff of [place] Plt Count MPV Immature Gran % (Auto) Neut % (Auto) Lymph % (Auto) [place] % (Auto) Eos % (Auto) Baso % (Auto) Immature Gran # (Auto) Neut # (Auto) Lymph # (Auto) [place] # (Auto) Eos # (Auto) Baso # (Auto) PT INR APTT PTT Ratio POC Sodium 138 Sodium POC Potassium 4.4 Potassium POC Chloride 104 Chloride Carbon Dioxide POC Total CO2 23 L Anion Gap POC Anion Gap 16.0 POC BUN 17 BUN Creatinine POC Creatinine 0.6 Est Cr Clr Drug Dosing Est GFR ( Amer) Est GFR (Non-Af Amer) BUN/Creatinine Ratio Glucose POC Glucose (other) 103 H Calcium POC Ioniz Calcium Sebastian 1.16 Total Bilirubin AST ALT Alkaline Phosphatase Total Protein Albumin Globulin Albumin/Globulin Ratio Lipase Urine Color Yellow Urine Appearance Clear Urine pH 7.5 Ur Specific [place] 1.018 Urine Protein Negative Urine Glucose (UA) Negative Urine Ketones Negative Urine Blood Trace H Urine Nitrite Negative Urine Bilirubin Negative Urine Urobilinogen Negative Ur Leukocyte Esterase Negative Urine WBC (Auto) 1-5 Urine RBC (Auto) 0-4 U Hyaline Cast (Auto) 1-5 U Epithel Cells (Auto) 10-20 H Urine Bacteria (Auto) Negative POC Ur Test NEG _ (1) Rectus sheath hematoma Encounter type: initial encounter Qualified Code(s): S30.1XXA - Contusion of abdominal wall, initial encounter
--- NOTE | 2019-01-10 01:41 | Surgery Consultation ---
Date of Consultation January 10, 2019 Assessment & Plan (1) Abdominal wall hematoma: pt is a 1 week S/P , with one day history lower abdominal pain, IMP: abdominal wall hematoma Plan, D/W pt and OBGYN doctor about possible conservative treatment, based on pt 's Vital signs stable, HR 67, H/H stable, no abdominal distend, but, if pt and her OBGYN doctor want to go to OR for stop bleeding, I will be happy stand by, if they program support assistant at OR. History of Present Illness History of Present Illness pt is a 38 year old female who presents to Er with one day history lower abdominal pain, pt had C- section 1 week ago, the pain ia located just below umbilical level, pt denies fever, no incision bleeding, pt denies dizziness. no weakness, Allergies Allergy/AdvReac Type Severity Reaction Status Date / Time oxycodone Allergy Intermediate ITCHING Verified 01/10/19 00:39 yellow dye Allergy Intermediate Rash Verified 01/10/19 00:39 lisinopril AdvReac Intermediate COUGH Verified 01/10/19 00:39 Home Medications Home Medications Medication Instructions Recorded Confirmed Type labetalol 100 mg PO BID 12/18/18 01/10/19 History omeprazole 20 mg PO DAILY 12/18/18 01/10/19 History vit no.[id number] 1 tab PO DAILY 12/18/18 01/10/19 History [ Vitamin] Lactobacillus acidophilus 1 tab PO DAILY 01/10/19 01/10/19 History [Acidophilus] acetaminophen [Tylenol] 650 mg PO Q6H PRN 01/10/19 01/10/19 History cranberry 500 mg PO DAILY 01/10/19 01/10/19 History docusate sodium [Colace] 100 - 200 mg PO DAILY 01/10/19 01/10/19 History ibuprofen 400 mg PO Q6 PRN 01/10/19 01/10/19 History Patient History Medical History Abdominal wall hematoma Acid reflux since age 19- uses Omeprazole daily Anxiety and depression no meds for last few years. last used meds in 2012 Chronic headaches states she gets 3-4/ month and relieved by Tylenol Essential (primary) hypertension Treated for prior to and during . Has been on ASA 81 and Labetolol in Herpes simplex type 1 infection Surgical History Previous section January 31, 2016 [place] teeth removed age 15 Family History Mother Hypertension Bicuspid aortic valve Father Cancer Social History marital status: Current Living Situation: Spouse Feels Safe at Home: Yes Smoking Status: Never smoker Second Hand Exposure: No Hx Alcohol Use: No Hx Substance Use: No Beliefs That Will Affect Care: None Preferred Language: Liberian Review of Systems Constitutional: as per Subjective / HPI Ear, Nose, Mouth, Throat: as per Subjective / HPI Respiratory: as per Subjective / HPI Cardiovascular: as per Subjective / HPI Additional Comments: HTN Gastrointestinal: as per Subjective / HPI x 2 Musculoskeletal: as per Subjective / HPI Neurologic: as per Subjective / HPI Psychiatric: as per Subjective / HPI Endocrine: as per Subjective / HPI Hematologic / Lymphatic: as per Subjective / HPI Physical Exam 2 Vital Signs (Past 24 Hours): Last Vital Signs Temp 36.7 C 01/09/19 23:20 Pulse 63 01/10/19 00:19 Resp 18 01/10/19 00:19 BP 164/100 H 01/10/19 00:19 Pulse Ox 94 01/10/19 00:19 Constitutional: WD/WN, vitals as above well developed and well nourished Neck: trachea midline, no thyromegaly Respiratory: normal respiratory effort, lungs clear to auscultation Cardiovascular: RRR, no murmur, no edema Rate/Rhythm: regular rate and regular rhythm Gastrointestinal (Abdomen): lower transverse incision, no active bleeding from incision, no redness, some tenderness around incision, no abdominal distend. Neurologic: awake Psychiatric: Orientation: alert and oriented x 3 Lymphatic: no cervical or axillary lymphadenopathy Results & Data Laboratory Results Abnormal lab results 01/09/19 01/09/19 01/09/19 Range/Units 22:00 22:00 23:50 RBC 3.88 L (4.2-5.4) M/uL POC Hgb 11.2 L (12.0-16.0) g/dl Hct 36.3 L (37-47) % POC Hct 33 L (37-47) % RDW Std Deviation 46.9 H (36.4-46.3) fL [place] # (Auto) 0.67 H (0.11-0.59) K/uL POC Total CO2 23 L (24-31) mEq/l BUN 19 H (7-18) mg/dl BUN/Creatinine Ratio 29.1 H (10-20) POC Glucose (other) 103 H (70-99) mg/dl Calcium 8.2 L (8.5-10.1) mg/dl AST 12 L (15-37) U/L Albumin 3.0 L (3.4-5.0) gm/dl Urine Blood (Negative) U Epithel Cells (Auto) (0-5) /lpf 01/10/19 Range/Units 00:45 RBC (4.2-5.4) M/uL POC Hgb (12.0-16.0) g/dl Hct (37-47) % POC Hct (37-47) % RDW Std Deviation (36.4-46.3) fL [place] # (Auto) (0.11-0.59) K/uL POC Total CO2 (24-31) mEq/l BUN (7-18) mg/dl BUN/Creatinine Ratio (10-20) POC Glucose (other) (70-99) mg/dl Calcium (8.5-10.1) mg/dl AST (15-37) U/L Albumin (3.4-5.0) gm/dl Urine Blood Trace H (Negative) U Epithel Cells (Auto) 10-20 H (0-5) /lpf Diagnostic Findings CT scan- abdominal wall hematoma,
--- NOTE | 2019-01-10 01:54 | Emergency Department Note ---
Entered by Madhav Huizar acting as a scribe for Andrea Posadas MD History of Present Illness General Chief complaint: Abdominal Pain Stated complaint: AB PAIN Time Seen by Provider: 01/09/19 23:18 Source: patient and family Mode of arrival: ambulatory Limitations: no limitations History of Present Illness Onset (ago): hour(s) 3 Location: abdomen Severity: severe ("Intense") Pain Consistency: + other (Worsening) Relieved By: + none Associated symptoms: + other (Vaginal bleeding) The patient is a 38 year old female who presents to the ED with her due to complaints of sudden onset of worsening �intense� abdominal pain that began 3 hours ago after coughing. Patient states she gave a week ago via a c- section by Dr. Francis at [facility]. She adds that she still has vaginal bleeding from the . Home Medications Home Medications Medication Instructions Recorded Confirmed Type labetalol 100 mg PO BID 12/18/18 01/10/19 History omeprazole 20 mg PO DAILY 12/18/18 01/10/19 History vit no.[id number] 1 tab PO DAILY 12/18/18 01/10/19 History [ Vitamin] Lactobacillus acidophilus 1 tab PO DAILY 01/10/19 01/10/19 History [Acidophilus] acetaminophen [Tylenol] 650 mg PO Q6H PRN 01/10/19 01/10/19 History cranberry 500 mg PO DAILY 01/10/19 01/10/19 History docusate sodium [Colace] 100 - 200 mg PO DAILY 01/10/19 01/10/19 History ibuprofen 400 mg PO Q6 PRN 01/10/19 01/10/19 History Allergies Allergy/AdvReac Type Severity Reaction Status Date / Time oxycodone Allergy Intermediate ITCHING Verified 01/10/19 00:39 yellow dye Allergy Intermediate Rash Verified 01/10/19 00:39 lisinopril AdvReac Intermediate COUGH Verified 01/10/19 00:39 Past Med/Surg History Medical History Abdominal wall hematoma Acid reflux since age 19- uses Omeprazole daily Anxiety and depression no meds for last few years. last used meds in 2012 Chronic headaches states she gets 3-4/ month and relieved by Tylenol Essential (primary) hypertension Treated for prior to and during . Has been on ASA 81 and Labetolol in Herpes simplex type 1 infection Surgical History Previous section January 31, 2016 Pierce teeth removed age 15 Family History Mother Hypertension Bicuspid aortic valve Father Cancer Social History marital status: Current Living Situation: Spouse Feels Safe at Home: Yes Smoking Status: Never smoker Second Hand Exposure: No Hx Alcohol Use: No Hx Substance Use: No Beliefs That Will Affect Care: None Preferred Language: [place] Review of Systems See HPI for pertinent positives & negatives. and A total of 10 systems reviewed and were otherwise negative Physical Exam Vital Signs Vital Signs - 24 hr 01/09/19 23:20 01/09/19 23:24 01/10/19 00:19 Temperature 36.7 C Temperature Source Oral Sepsis Recent Fever Within 48 Hours No Sepsis Action Taken by Nursing No Action Required Pulse Rate 65 77 63 Respiratory Rate 21 17 18 Blood Pressure 156/104 H 164/100 H Blood Pressure Mean 121 121 Pulse Oximetry 96 98 94 Oxygen Delivery Method Room Air 01/10/19 00:30 01/10/19 00:45 01/10/19 01:00 Temperature Temperature Source Sepsis Recent Fever Within 48 Hours Sepsis Action Taken by Nursing Pulse Rate 70 64 66 Respiratory Rate 14 22 13 Blood Pressure 153/97 H Blood Pressure Mean 115 Pulse Oximetry 95 93 95 Oxygen Delivery Method 01/10/19 01:01 01/10/19 01:30 01/10/19 01:35 Temperature Temperature Source Sepsis Recent Fever Within 48 Hours Sepsis Action Taken by Nursing Pulse Rate 65 68 65 Respiratory Rate 17 15 20 Blood Pressure 150/92 H 156/87 H Blood Pressure Mean 111 110 Pulse Oximetry 94 96 Oxygen Delivery Method 01/10/19 02:00 01/10/19 02:01 01/10/19 02:02 Temperature Temperature Source Sepsis Recent Fever Within 48 Hours Sepsis Action Taken by Nursing Pulse Rate 66 69 69 Respiratory Rate 16 17 20 Blood Pressure 142/93 H Blood Pressure Mean 109 Pulse Oximetry 95 96 96 Oxygen Delivery Method 01/10/19 02:30 01/10/19 02:31 Temperature Temperature Source Sepsis Recent Fever Within 48 Hours Sepsis Action Taken by Nursing Pulse Rate 61 67 Respiratory Rate 15 16 Blood Pressure 143/93 H Blood Pressure Mean 109 Pulse Oximetry 91 94 Oxygen Delivery Method GENERAL: Patient is a healthy-appearing well-nourished female HEAD: Normocephalic atraumatic EYES: Ocular movements intact pupils equal and react to light OROPHARYNX mucous membranes are moist no exudates present no erythema or edema present NECK: Supple no nuchal rigidity CHEST: Good equal expansion LUNGS: Clear and equal to auscultation CARDIAC: Normal S1 and S2 ABDOMEN: Diffusely tender throughout her whole abdomen otherwise soft no guarding BACK: No CVA tenderness EXTREMITIES: No pain upon palpation normal muscle strength in all groups no clubbing cyanosis or edema NEURO: Patient is following commands is answering questions appropriately. Alert and oriented x3 Cranial Nerves 2-12 grossly intact Course 2322: Past medical records reviewed. The patient was evaluated in room B3, and a complete history and physical examination were performed. 0153: Upon reevaluation, the patient will be further evaluated and sent to the operating room. I updated the patient on her treatment plan and findings. She is agreeable to the treatment plan. Patient will taken to the operating room. Consultations Consultation #1: I reviewed the patient's case with Dr. Strange. He will evaluate the patient for further management. Time: 00:42 Consultation #2: I reviewed the patient's case with Dr. Ko. She will evaluate the patient for further management. Time: 00:52 Administered Medications Hydromorphone HCl (Dilaudid) 1 mg IV Q15M PRN PRN Reason: Pain Stop: 01/23/19 23:23 Last Admin: 01/10/19 02:08 Dose: 1 mg Admin: 01/10/19 00:21 Dose: 1 mg Admin: 01/09/19 23:34 Dose: 1 mg Ioversol (Optiray 320 100ml) 100 ml IV ONCE PRN PRN Reason: Interaction Checking Stop: 01/14/19 00:17 Last Admin: 01/10/19 00:18 Dose: 93 ml Discontinued Medications Sodium Chloride (Nss 1000ml) 1,000 mls @ 999 mls/hr IV .Q1H1M PETROS Stop: 01/10/19 00:30 Last Infusion: 01/10/19 00:26 Dose: 0 mls/hr Admin: 01/09/19 23:27 Dose: 999 mls/hr Ondansetron HCl (Zofran) 4 mg IV NOW STA Stop: 01/09/19 23:25 Last Admin: 01/09/19 23:36 Dose: 4 mg Medical Decision Making Differential Diagnosis Differential diagnosis: Etiologies such as biliary colic, cholecystitis, hepatitis, pancreatitis, cardiac disease, pancreatitis, gastritis, peptic ulcer disease, appendicitis, cystitis, diverticulitis, mesenteric ischemia, inflammatory bowel disease, ileus , bowel obstruction, testicular torsion, aortic pathology, shingles, as well as others were considered. Medical Records Attestation: I reviewed the patient's medical records. Home Medications Current Medication List: was personally reviewed by me Laboratory Data Attestation: I reviewed the patient's lab results. Result diagrams: 01/09/19 22:00 01/09/19 22:00 Lab Results 01/09/19 01/09/19 01/09/19 Range/Units 22:00 22:00 22:00 WBC 9.01 (4.8-10.8) K/uL RBC 3.88 L (4.2-5.4) M/uL Hgb 12.1 (12.0-16.0) g/dL POC Hgb (12.0-16.0) g/dl Hct 36.3 L (37-47) % POC Hct (37-47) % MCV 93.6 (80-100) fL MCH 31.2 (25-34) pg MCHC 33.3 (32-36) g/dL RDW Std Deviation 46.9 H (36.4-46.3) fL RDW Coeff of Yarely 13.7 (11.5-14.5) % Plt Count 333 (130-400) K/uL MPV 10.2 (7.4-10.4) fL Immature Gran % (Auto) 0.2 % Neut % (Auto) 60.3 % Lymph % (Auto) 29.1 % [place] % (Auto) 7.4 % Eos % (Auto) 2.6 % Baso % (Auto) 0.4 % Immature Gran # (Auto) 0.02 (0.00-0.02) K/uL Neut # (Auto) 5.43 (1.4-6.5) K/uL Lymph # (Auto) 2.62 (1.2-3.4) K/uL [place] # (Auto) 0.67 H (0.11-0.59) K/uL Eos # (Auto) 0.23 (0-0.5) K/uL Baso # (Auto) 0.04 (0-0.2) K/uL PT 10.0 (9.0-12.0) Seconds INR 1.0 (0.9-1.1) APTT 28.2 (21.0-31.0) Seconds PTT Ratio 1.1 POC Sodium (135-144) mEq/L Sodium 137 (136-145) mmol/L POC Potassium (3.3-5.0) mEq/L Potassium 4.2 (3.5-5.1) mmol/L POC Chloride (101-112) mEq/L Chloride 106 (98-107) mmol/L Carbon Dioxide 23 (21-32) mmol/L POC Total CO2 (24-31) mEq/l Anion Gap 8.0 (3-11) POC Anion Gap (16-25) mmol/L POC BUN (7-18) mg/dl BUN 19 H (7-18) mg/dl Creatinine 0.64 (0.6-1.2) mg/dl POC Creatinine (0.6-1.3) mg/dl Est Cr Clr Drug Dosing 143.3 ml/min Est GFR ( Amer) 130.3 Est GFR (Non-Af Amer) 112.4 BUN/Creatinine Ratio 29.1 H (10-20) Glucose 83 (70-99) mg/dl POC Glucose (other) (70-99) mg/dl Calcium 8.2 L (8.5-10.1) mg/dl POC Ioniz Calcium Sebastian (1.12-1.32) mmol/l Total Bilirubin 0.6 (0.2-1) mg/dl AST 12 L (15-37) U/L ALT 24 (12-78) U/L Alkaline Phosphatase 98 (45-117) U/L Total Protein 6.5 (6.4-8.2) gm/dl Albumin 3.0 L (3.4-5.0) gm/dl Globulin 3.5 (2.5-4.0) gm/dl Albumin/Globulin Ratio 0.9 (0.9-2) Lipase 86 (73-393) U/L Urine Color Urine Appearance (Clear) Urine pH (4.5-7.5) Ur Specific Pyrites (1.000-1.030) Urine Protein (Negative) Urine Glucose (UA) (Negative) Urine Ketones (Negative) Urine Blood (Negative) Urine Nitrite (Negative) Urine Bilirubin (Negative) Urine Urobilinogen (Negative) Ur Leukocyte Esterase (Negative) Urine WBC (Auto) (0-5) /hpf Urine RBC (Auto) (0-4) /hpf U Hyaline Cast (Auto) (0-5) /lpf U Epithel Cells (Auto) (0-5) /lpf Urine Bacteria (Auto) (Negative) POC Ur Test (NEG) Blood Type Antibody Screen 01/09/19 01/10/19 01/10/19 Range/Units 23:50 00:45 00:45 WBC (4.8-10.8) K/uL RBC (4.2-5.4) M/uL Hgb (12.0-16.0) g/dL POC Hgb 11.2 L (12.0-16.0) g/dl Hct (37-47) % POC Hct 33 L (37-47) % MCV (80-100) fL MCH (25-34) pg MCHC (32-36) g/dL RDW Std Deviation (36.4-46.3) fL RDW Coeff of Yarely (11.5-14.5) % Plt Count (130-400) K/uL MPV (7.4-10.4) fL Immature Gran % (Auto) % Neut % (Auto) % Lymph % (Auto) % [place] % (Auto) % Eos % (Auto) % Baso % (Auto) % Immature Gran # (Auto) (0.00-0.02) K/uL Neut # (Auto) (1.4-6.5) K/uL Lymph # (Auto) (1.2-3.4) K/uL [place] # (Auto) (0.11-0.59) K/uL Eos # (Auto) (0-0.5) K/uL Baso # (Auto) (0-0.2) K/uL PT (9.0-12.0) Seconds INR (0.9-1.1) APTT (21.0-31.0) Seconds PTT Ratio POC Sodium 138 (135-144) mEq/L Sodium (136-145) mmol/L POC Potassium 4.4 (3.3-5.0) mEq/L Potassium (3.5-5.1) mmol/L POC Chloride 104 (101-112) mEq/L Chloride (98-107) mmol/L Carbon Dioxide (21-32) mmol/L POC Total CO2 23 L (24-31) mEq/l Anion Gap (3-11) POC Anion Gap 16.0 (16-25) mmol/L POC BUN 17 (7-18) mg/dl BUN (7-18) mg/dl Creatinine (0.6-1.2) mg/dl POC Creatinine 0.6 (0.6-1.3) mg/dl Est Cr Clr Drug Dosing ml/min Est GFR ( Amer) Est GFR (Non-Af Amer) BUN/Creatinine Ratio (10-20) Glucose (70-99) mg/dl POC Glucose (other) 103 H (70-99) mg/dl Calcium (8.5-10.1) mg/dl POC Ioniz Calcium Sebastian 1.16 (1.12-1.32) mmol/l Total Bilirubin (0.2-1) mg/dl AST (15-37) U/L ALT (12-78) U/L Alkaline Phosphatase (45-117) U/L Total Protein (6.4-8.2) gm/dl Albumin (3.4-5.0) gm/dl Globulin (2.5-4.0) gm/dl Albumin/Globulin Ratio (0.9-2) Lipase (73-393) U/L Urine Color Yellow Urine Appearance Clear (Clear) Urine pH 7.5 (4.5-7.5) Ur Specific Pyrites 1.018 (1.000-1.030) Urine Protein Negative (Negative) Urine Glucose (UA) Negative (Negative) Urine Ketones Negative (Negative) Urine Blood Trace H (Negative) Urine Nitrite Negative (Negative) Urine Bilirubin Negative (Negative) Urine Urobilinogen Negative (Negative) Ur Leukocyte Esterase Negative (Negative) Urine WBC (Auto) 1-5 (0-5) /hpf Urine RBC (Auto) 0-4 (0-4) /hpf U Hyaline Cast (Auto) 1-5 (0-5) /lpf U Epithel Cells (Auto) 10-20 H (0-5) /lpf Urine Bacteria (Auto) Negative (Negative) POC Ur Test NEG (NEG) Blood Type Antibody Screen 01/10/19 01/10/19 Range/Units 01:34 02:29 WBC (4.8-10.8) K/uL RBC (4.2-5.4) M/uL Hgb (12.0-16.0) g/dL POC Hgb 10.9 L (12.0-16.0) g/dl Hct (37-47) % POC Hct 32 L (37-47) % MCV (80-100) fL MCH (25-34) pg MCHC (32-36) g/dL RDW Std Deviation (36.4-46.3) fL RDW Coeff of Yarely (11.5-14.5) % Plt Count (130-400) K/uL MPV (7.4-10.4) fL Immature Gran % (Auto) % Neut % (Auto) % Lymph % (Auto) % [place] % (Auto) % Eos % (Auto) % Baso % (Auto) % Immature Gran # (Auto) (0.00-0.02) K/uL Neut # (Auto) (1.4-6.5) K/uL Lymph # (Auto) (1.2-3.4) K/uL [place] # (Auto) (0.11-0.59) K/uL Eos # (Auto) (0-0.5) K/uL Baso # (Auto) (0-0.2) K/uL PT (9.0-12.0) Seconds INR (0.9-1.1) APTT (21.0-31.0) Seconds PTT Ratio POC Sodium 137 (135-144) mEq/L Sodium (136-145) mmol/L POC Potassium 4.5 (3.3-5.0) mEq/L Potassium (3.5-5.1) mmol/L POC Chloride 104 (101-112) mEq/L Chloride (98-107) mmol/L Carbon Dioxide (21-32) mmol/L POC Total CO2 24 (24-31) mEq/l Anion Gap (3-11) POC Anion Gap 15.0 L (16-25) mmol/L POC BUN 17 (7-18) mg/dl BUN (7-18) mg/dl Creatinine (0.6-1.2) mg/dl POC Creatinine 0.5 L (0.6-1.3) mg/dl Est Cr Clr Drug Dosing ml/min Est GFR ( Amer) Est GFR (Non-Af Amer) BUN/Creatinine Ratio (10-20) Glucose (70-99) mg/dl POC Glucose (other) 101 H (70-99) mg/dl Calcium (8.5-10.1) mg/dl POC Ioniz Calcium Sebastian 1.13 (1.12-1.32) mmol/l Total Bilirubin (0.2-1) mg/dl AST (15-37) U/L ALT (12-78) U/L Alkaline Phosphatase (45-117) U/L Total Protein (6.4-8.2) gm/dl Albumin (3.4-5.0) gm/dl Globulin (2.5-4.0) gm/dl Albumin/Globulin Ratio (0.9-2) Lipase (73-393) U/L Urine Color Urine Appearance (Clear) Urine pH (4.5-7.5) Ur Specific Pyrites (1.000-1.030) Urine Protein (Negative) Urine Glucose (UA) (Negative) Urine Ketones (Negative) Urine Blood (Negative) Urine Nitrite (Negative) Urine Bilirubin (Negative) Urine Urobilinogen (Negative) Ur Leukocyte Esterase (Negative) Urine WBC (Auto) (0-5) /hpf Urine RBC (Auto) (0-4) /hpf U Hyaline Cast (Auto) (0-5) /lpf U Epithel Cells (Auto) (0-5) /lpf Urine Bacteria (Auto) (Negative) POC Ur Test (NEG) Blood Type O Positive Antibody Screen NEGATIVE Imaging Data Attestation: I personally reviewed and interpreted this imaging study as follows : My Impression: One view of the chest was interpreted by me shows no evidence of pneumonia congestion or pneumothorax Blood Pressure Blood Pressure Findings: Elevated blood pressure Blood Pressure Disposition: elevated BP felt to be situational MDM Narrative This is a 38-year-old female who presents emergency department complaining of severe abdominal pain after coughing this evening. The patient has a hemoglobin of 12. A type and screen was obtained. She does not have an elevation in her white blood cell count has a normal kidney and liver profile. She was sent for a CAT scan of the abdomen pelvis which was concerning for a large rectus sheath hematoma with possible continued bleeding. Based on these findings I did discuss the case with the surgeon divisional merchandising manager as well as the drafter landscape on-call. The drafter landscape agreed to take the patient to the operating room. Impression & Plan Abdominal pain, Rectus sheath hematoma Critical Care Time I have personally spent greater than 30 minutes of critical care time in the direct management of this patient. This includes bedside care, interpretation of diagnostic studies, and testing, discussion with consultants, patient, and family members, and other required patient management activities. This 30 minutes is in excess of all separately billable procedures. Discharge Plan Visit Data Chief Complaint: Abdominal Pain Stated Complaint: AB PAIN ED Provider: Andrea Posadas Discharge Problem: Abdominal pain, Rectus sheath hematoma Discharge Instructions Interventions: ED Discharge Assessment Last Done: 01/10/19 02:34 Forms Stand Alone Forms: Call Back Authorization, [facility] Prescriptions Prescriptions: No Action omeprazole 20 mg Capsule,Delayed Release(Dr/Ec) 20 mg PO DAILY RF: 0 labetalol 100 mg Tablet 100 mg PO BID RF: 0 vit [id number] [ Vitamin] 27 mg iron- 800 mcg Tablet 1 tab PO DAILY RF: 0 ibuprofen 200 mg Tablet 400 mg PO Q6 PRN (Reason: Pain) RF: 0 docusate sodium [Colace] 100 mg Capsule 100 - 200 mg PO DAILY RF: 0 Lactobacillus acidophilus [Acidophilus] Capsule 1 tab PO DAILY RF: 0 cranberry 500 mg Capsule 500 mg PO DAILY RF: 0 acetaminophen [Tylenol] 325 mg Capsule 650 mg PO Q6H PRN (Reason: Pain) RF: 0 Referrals Referrals: Chelsey Donovan DO [Primary Care Provider] - The scribe's documentation has been prepared under my direction and personally reviewed by me in its entirety. I confirm that the note above accurately reflects all work, treatment, procedures, and medical decision making performed by me.
[2019-01-10] MEDS ORDERED: LACTATED RINGER'S 1,000 ML IV SCH (02:00)
[2019-01-10] MEDS ORDERED: CEFAZOLIN 3000MG 65 ML IV SCH (02:00)
--- NOTE | 2019-01-10 02:02 | Anesthesiology Consultation ---
Date of Service January 10, 2019 Assessment & Plan Chart Review Chart Review: Acceptable Risk for Surgery and Patient NOT seen in Pre Admission Testing Consults Requested none ASA [id number] Proposed Anesthesia Anesthesia Type: General Risk / Benefits Reviewed With: PT / POA / Parent / Guardian, Accepts Plan and Informed Consent Obtained NPO Date Last Intake of Fluids: 01/09/19 Time Last Intake of Fluids: 20:30 Date Last Intake of Solids: 01/09/19 Time Last Intake of Solids: 17:30 History Surgery Operation Date: 01/10/19 02:00 Proposed Procedures p Operative Laparoscopic - Savannah Ko MD Height/Weight Height: 5 ft 4 in Weight: 110.3 kg Allergies Allergy/AdvReac Type Severity Reaction Status Date / Time oxycodone Allergy Intermediate ITCHING Verified 01/10/19 00:39 yellow dye Allergy Intermediate Rash Verified 01/10/19 00:39 lisinopril AdvReac Intermediate COUGH Verified 01/10/19 00:39 Medications Home Medications Medication Instructions Recorded Confirmed Last Taken labetalol 100 mg PO BID 12/18/18 01/10/19 01/09/19 omeprazole 20 mg PO DAILY 12/18/18 01/10/19 01/09/19 vit no.[id number] 1 tab PO DAILY 12/18/18 01/10/19 01/09/19 [ Vitamin] Lactobacillus acidophilus 1 tab PO DAILY 01/10/19 01/10/19 01/09/19 [Acidophilus] acetaminophen [Tylenol] 650 mg PO Q6H PRN 01/10/19 01/10/19 Unknown cranberry 500 mg PO DAILY 01/10/19 01/10/19 01/09/19 docusate sodium [Colace] 100 - 200 mg PO DAILY 01/10/19 01/10/19 01/09/19 ibuprofen 400 mg PO Q6 PRN 01/10/19 01/10/19 Unknown Active Medications Generic Name Dose Route Start Last Admin Trade Name Freq PRN Reason Stop Dose Admin Hydromorphone HCl 1 mg 01/09/19 23:24 01/10/19 00:21 Dilaudid IV 01/23/19 23:23 1 mg Q15M PRN Administration Pain Ioversol 100 ml 01/10/19 00:18 01/10/19 00:18 Optiray 320 100ml IV 01/14/19 00:17 93 ml ONCE PRN Administration Interaction Checking Beta Krystle Beta Krystle Taken Within 24 Hours: Yes Past Medical History Medical History Abdominal wall hematoma Acid reflux since age 19- uses Omeprazole daily Anxiety and depression no meds for last few years. last used meds in 2012 Chronic headaches states she gets 3-4/ month and relieved by Tylenol Essential (primary) hypertension Treated for prior to and during . Has been on ASA 81 and Labetolol in Herpes simplex type 1 infection Past Family History Family History Mother Hypertension Bicuspid aortic valve Father Cancer Past Surgical History Surgical History Previous section January 31, 2016 Golden teeth removed age 15 Past Anesthesia History No Hx of Anesthesia Complications and No Family Hx of Anesthesia Complications History of PONV No Motion Sickness Screening History of Motion Sickness: No Social History Smoking Status: Never smoker Hx Alcohol Use: No Hx Substance Use: No substance use type: does not use Exercise / Class Metabolic Activity III < 4 Walking/Shop/Light housework Physical Exam Vital Signs Last Vital Signs Temp 36.7 C 01/09/19 23:20 Pulse 68 01/10/19 01:30 Resp 15 01/10/19 01:30 BP 150/92 H 01/10/19 01:01 Pulse Ox 94 01/10/19 01:01 Constitutional + morbidly obese ENMT Mouth: no dentition abnormality Thyromental Distance: < 3.5 Finger Breadths Mallampati Class: III Neck normal visual inspection and trachea midline; neck extension not limited Respiratory normal respiratory effort Auscultation: lungs clear to auscultation bilaterally Cardiovascular Rate/Rhythm: regular rate and regular rhythm Heart Sounds: no murmur Vessels: no carotid bruit Musculoskeletal Spine: normal cervical ROM Extremities: full ROM of extremities Neurologic moves all extremities Motor/Sensory: no sensory deficit Psychiatric Orientation: alert and oriented x 3 Testing Electrocardiogram Date: 01/10/19 Findings: + NSR @ (at 61) Laboratory Results 01/09/19 22:00 01/09/19 22:00 PT 10.0 Seconds (9.0-12.0) 01/09/19 22:00 INR 1.0 (0.9-1.1) 01/09/19 22:00 APTT 28.2 Seconds (21.0-31.0) 01/09/19 22:00 Urine Color Yellow 01/10/19 00:45 Urine Appearance Clear (Clear) 01/10/19 00:45 Urine pH 7.5 (4.5-7.5) 01/10/19 00:45 Ur Specific [place] 1.018 (1.000-1.030) 01/10/19 00:45 Urine Protein Negative (Negative) 01/10/19 00:45 Urine Glucose (UA) Negative (Negative) 01/10/19 00:45 Urine Ketones Negative (Negative) 01/10/19 00:45 Urine Nitrite Negative (Negative) 01/10/19 00:45 Ur Leukocyte Esterase Negative (Negative) 01/10/19 00:45 Urine WBC (Auto) 1-5 /hpf (0-5) 01/10/19 00:45 Urine RBC (Auto) 0-4 /hpf (0-4) 01/10/19 00:45 U Hyaline Cast (Auto) 1-5 /lpf (0-5) 01/10/19 00:45 U Epithel Cells (Auto) 10-20 /lpf (0-5) H 01/10/19 00:45 Urine Bacteria (Auto) Negative (Negative) 01/10/19 00:45 01/09/19 23:50 POC Glucose (other) 103 H 01/10/19 00:45 POC Ur Test NEG
[2019-01-10 02:44] LABS: iSTAT Hemoglobin 10.9 g/dl (12.0-16.0); iSTAT Ionized Calcium 1.13 mmol/l (1.12-1.32)
[2019-01-10] MEDS ORDERED: PROPOFOL IV EMULSION 10 MG/ML 20 ML VIAL IV ONE (03:10)
[2019-01-10] MEDS ORDERED: fentaNYL citrate 100 MCG/2 ML VIAL ONE (03:11)
[2019-01-10] MEDS ORDERED: MIDAZOLAM HCL 1 MG/ML 2ML VIAL ONE (03:12)
[2019-01-10] MEDS ORDERED: CEFAZOLIN 250 MG/ML 1 GM VIAL ONE (03:29)
[2019-01-10] MEDS ORDERED: SUCCINYLCHOLINE 100MG/5ML SYR ONE (03:36)
[2019-01-10] MEDS ORDERED: CISATRACURIUM BESYLATE IV SOLN 2 MG/ML 10 ML VIAL IV ONE (03:36)
[2019-01-10] MEDS ORDERED: DEXAMETHASONE SOD INJ 4 MG/ML VIAL ONE (03:37)
[2019-01-10] MEDS ORDERED: OXYTOCIN 10 UNITS/ML VIAL ONE (03:37)
[2019-01-10] MEDS ORDERED: NEOSTIGMINE METHYLSULFATE 5 MG/5 ML SYR ONE (04:20)
[2019-01-10] MEDS ORDERED: GLYCOPYRROLATE 0.2 MG/ML VIAL ONE (04:20)
--- NOTE | 2019-01-10 04:23 | Post Operative Brief Note ---
Immediate Post Op Note v1 Date of Surgery January 10, 2019 Pre & Post Diagnosis Operation Date: 01/10/19 02:00 Pre-Op Diagnosis: Rectus Sheath Hematoma Post-Op Diagnosis: Rectus Sheath Hematoma Procedure Operation Date: 01/10/19 02:00 Actual Procedures p Exploratory Laparotomy with Evacuation of Rectus Sheath Hematoma and Ligation of Bleeding Vessels - Savannah Ko MD Surgeon Savannah Ko MD Food Service Steward Liza Estimated Blood Loss 50 (650cc clot, 50cc intraop ) Findings Consistent with Post-Op Diagnosis Drains Snow Catheter and Miguel-Alas Drain
[2019-01-10] MEDS ORDERED: OXYCODONE/ACETAMINOPHEN 5mg/325mg TAB PO PRN (04:24)
[2019-01-10] MEDS ORDERED: ACETAMINOPHEN 325 MG TAB PO PRN (04:24)
[2019-01-10] MEDS ORDERED: ONDANSETRON INJ 2 MG/ML 2 ML VIAL IV PRN ×2 (04:24→04:35)
[2019-01-10] MEDS ORDERED: HYDROmorphone INJ 1 MG/ML SYRINGE IV PRN (04:28)
[2019-01-10] MEDS ORDERED: ePHEDrine sulfate 50 MG/ML AMP IV PRN (04:35)
[2019-01-10] MEDS ORDERED: FLUMAZENIL 0.1 MG/1 ML 10 ML VIAL IV PRN (04:35)
[2019-01-10] MEDS ORDERED: NALOXONE HCL 0.4 MG/1 ML VIAL/CARP IV PRN (04:35)
[2019-01-10] MEDS ORDERED: ATROPINE SULFATE 0.1 MG/ML 10ML SYR IV PRN (04:35)
[2019-01-10] MEDS ORDERED: PROMETHAZINE HCL 12.5 MG in SODIUM CHLORIDE 0.9% 50 ML IV PRN (04:35)
[2019-01-10] MEDS ORDERED: LABETALOL HCL IV 5 MG/ML 20ML IV PRN (04:35)
[2019-01-10] MEDS ORDERED: HYDROmorphone INJ 1 MG/ML SYRINGE ONE ×2 (04:56→05:15)
--- NOTE | 2019-01-10 05:49 | Anesthesiology Progress Note ---
Date of Service January 10, 2019 Anesthesia Post Procedure Vital Signs Vital Signs: Temp Pulse Pulse Resp BP BP Pulse Ox 01/10/19 05:39 36.3 C L 75 15 151/95 H 97 01/10/19 05:28 77 16 138/93 98 01/10/19 05:15 70 14 146/97 H 97 01/10/19 05:05 75 15 150/94 H 98 01/10/19 04:55 71 14 151/94 H 91 01/10/19 04:45 76 14 152/91 H 93 01/10/19 04:35 36.4 C L 73 15 148/88 H 100 01/10/19 02:31 67 16 143/93 H 94 01/10/19 02:30 61 15 91 01/10/19 02:02 69 20 96 01/10/19 02:01 69 17 142/93 H 96 01/10/19 02:00 66 16 95 01/10/19 01:35 65 20 156/87 H 96 01/10/19 01:30 68 15 01/10/19 01:01 65 17 150/92 H 94 01/10/19 01:00 66 13 95 01/10/19 00:45 64 22 153/97 H 93 01/10/19 00:30 70 14 95 01/10/19 00:19 63 18 164/100 H 94 01/09/19 23:24 77 17 98 01/09/19 23:20 36.7 C 65 21 156/104 H 96 Pain Intensity Bilateral Abdomen: Pain Intensity: 4 Notes Mental Status: alert / awake / arousable Patient Amnestic to Procedure: Yes Nausea / Vomiting: adequately controlled Pain: adequately controlled Airway Patency, RR, SpO2: stable & adequate BP & HR: stable & adequate Hydration State: stable & adequate Anesthetic Complications: no major complications apparent
--- NOTE | 2019-01-10 06:16 | Operative Report ---
DATE OF OPERATION: 01/10/2019 PREOPERATIVE DIAGNOSIS: Type 3 rectus sheath hematoma. POSTOPERATIVE DIAGNOSIS: Same. PROCEDURE: Exploratory laparotomy with evacuation of rectus sheath hematoma and ligation of bleeding vessel. SURGEON: Savannah Ko MD ENVIRONMENTAL ENGINEERING AIDE: Dr. De Jesus. ESTIMATED BLOOD LOSS: 50 mL intraoperative plus removal of 650 mL solid clot. COMPLICATIONS: None. DISPOSITION: Stable to recovery. DESCRIPTION OF PROCEDURE: Chelsey is a 38-year-old who is 7 days status post a repeat low transverse section for an who is doing well. Chelsey had been recovering normally until this evening at about 8:00 p.m. she coughed and had sudden onset of pain which gradually worsened and led her to present to the ER. See notes from the ER for further details, but essentially diagnosis of rectus sheath hematoma was made based on imaging. The hematoma appeared to be 20 x 15 x 7 cm with active bleeding and to be anterior to the rectus muscles. The patient was counseled on her options and elected to proceed as recommended to the operating room for evacuation of clot and attempt to ligate any bleeding that was identified. Consents were confirmed with the patient as well as her and her parents who were present in the Emergency Department. All questions were answered. The patient was then transferred to the operating room where she was placed on the table in a supine position. General endotracheal anesthesia was established. The patient was prepped and draped in standard sterile fashion including the placement of a Snow catheter and a hard time-out was taken prior to proceeding. A Pfannenstiel incision which was very well healed was opened with a 15-blade along the exact incision line from her cutting through 4-0 Monocryl where it remained present. The subcutaneous layers were then opened. Some subcutaneous suture was encountered and then we were able to access the fascial layer. A minimal amount, perhaps 20 mL, of dark old clotted blood was encountered superior to the fascia likely consistent with insignificant typical postop oozing in the subcutaneous area. Once the fascia was encountered, this was examined and found to be completely intact. The fascial sutures had held well, there was no opening in the fascia. The fascial sutures were then snipped and as the fascia was opened stitch by stitch, a large solid hematoma was seen below. This had the appearance of relatively recent clotted blood and it was encompassing the entire area anterior to the rectus muscles. Once the fascia was opened, the surgeon's hands were used to gently scoop away this organizing clot which was weighed at 615 mL in the operating room. Saline-soaked gauze was used to gently wipe away adherent clot on the rectus muscle and allow exploration of the area which showed that the midline rectus reapproximating suture was intact and that the right anterior surface of the rectus muscle had a small corporate treasury analyst which was pulsatile and actively bleeding. This was a vessel less than 1 mm in diameter and was easily addressed using brief application of Bovie electrocautery. Saline, gauzes, and suction were used to systematically explore the entire surface of the rectus muscle, which although somewhat softened and macerated from exposure to the pressure of the hematoma, was otherwise intact and without any further arterial bleeding or significant venous oozing. The CAT scan imaging that was done on the patient in the ER was reviewed in the operating room in order to make a decision about whether to further open the muscle layer to explore posterior to this or not. Imaging appears to show an intact abdominal muscle posterior to which the rectus sheath was still well approximated, anterior to which areas of hyperechoic fresh blood were seen to be layering consistent with the areas already addressed. Given that the imaging showed relatively low concern for any bleeding behind the rectus muscle or any issues with the uterine closure, decision was made not to disrupt the midline rectus suture as reapproximating this would have been near impossible given the condition of the rectus muscle and may have provoked additional bleeding. A #10 Miguel-Alas drain was trimmed through 2 of the drainage holes to a length adequate to lie along the lower aspect of the anterior rectus muscle in the cavity created by the rectus hematoma. This was then brought out through a sterile stab incision superior to the Pfannenstiel in the right lower quadrant. The fascia was then reapproximated ensuring that the Miguel-Alas drain was not incorporated into the suture. This was done using looped PDS. The subcutaneous tissue was then copiously irrigated and reapproximated using 3-0 chromic. The skin was then closed using brigitte and a suture was used to secure the drain. A drain sponge was then applied as well as Telfa along the incision, ABD pads and Medipore tape as a dressing. At the time of surgery completion, the Miguel-Alas drain had trace perhaps less than 5 mL of bloody fluid. The Snow was draining well and the patient was transferred in stable condition to recovery. I attest to the content of the Intraoperative Record and any orders documented therein. Any exception s are noted below.
--- NOTE | 2019-01-10 06:56 | XRay Report ---
XR chest 1V portable CLINICAL HISTORY: Rectus sheath hematoma COMPARISON STUDY: No previous studies for comparison. FINDINGS: Lung volumes are normal. There is no pneumothorax or pleural effusion. No evidence for pulm onary edema. Cardiac size is at the upper limits of normal. IMPRESSION: No acute cardiopulmonary findings. Electronically signed by: River Chavira M.D. 01/10/2019 6:54 AM
--- NOTE | 2019-01-10 07:08 | CT Scan Report ---
CT OF THE ABDOMEN AND PELVIS WITH CONTRAST CLINICAL HISTORY: Pt c/o delivery, severe abd pain COMPARISON STUDY: CT of the abdomen and pelvis April 06, 2013. TECHNIQUE: Following IV administration of 93 mL of Optiray-320, axial images of the abdomen and pelvi s were obtained from the lung bases to the proximal femurs. Images were reviewed in the axial, sagitt al, and coronal planes. IV contrast was administered without complication. Automated exposure contro l was utilized for the study. A dose lowering technique was utilized adhering to the principles of A YURI. CT DOSE: 1218.71 mGy.cm FINDINGS: Trace bilateral pleural effusions. The liver, spleen, adrenal glands and pancreas are percy l. There is mild bilateral hydroureteronephrosis. The uterus is markedly enlarged consistent with rec ent state. There are blood products within the endometrial canal. There is trace gas withi n the endometrial canal. Note is made of a large bilateral rectus sheath hematoma that measures 18.5 x 8.7 x 15 cm. Hyperdense material within the posterior inferior aspect of this hematoma represents a ctive extravasation. There is associated extraperitoneal hemorrhage. section incision is not ed. No significant skeletal abnormalities are present. There is no evidence for a bowel obstruction. No pneumatosis, free air or portal venous gas is present. IMPRESSION: 1. Large rectus sheath hematoma that measures approximately 18.5 x 8.7 x 15 cm. Hyperdense material w ithin the posterior inferior aspect of the hematoma represents active extravasation. Associated extra peritoneal hemorrhage. Gynecologic consultation is recommended. 2. Findings consistent with recent section. Expected uterine enlargement. Blood products wit hin the endometrial canal. Small amount of gas within the endometrial canal is likely related to rece nt procedure. Endometritis could appear similar although is considered less likely. 3. Mild bilateral hydroureteronephrosis likely related to an enlarged uterus. 4. Trace bilateral pleural effusions. Electronically signed by: River Chavira M.D. 01/10/2019 7:07 AM
--- NOTE | 2019-01-10 07:52 | Gynecologic Progress Note ---
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 She notes greatly decreased pain after removal of the hematoma. Drain output is appropriate for postop status, and would recommend keeping VANESSA in place until daily output <30cc. Snow currently in situ , and can be removed this morning once patient demonstrates ability to ambulate to bedside commode or bathroom. (I would prefer to avoid bedpan as using her abdominal muscles to lift her hips over the lin may be quite painful.) Can advance directly to regular diet. Pain medication PRN. Patient will pump and dump for 24hr after anesthesia but may resume nursing tomorrow morning even if using prn pain meds as ordered. She is aware minimal transfer through milk can occur but is generally considered acceptable. All questions answered. Dr De Jesus will be assuming care today and was present for surgery; pt and family aware. She is to have brigitte removed in office, and already has an appointment for 01/18 with Elliot that will serve nicely for that purpose based on the timing. Present on Admission?: Yes Subjective Patient awake and comfortable. Sitting up and pumping milk when I entered her room. Talking with . She states her pain is much, much better than before surgery, and is only a "soreness" now. Has passed a little gas, has not been out of bed yet, and is interested in solid food for breakfast. Physical Exam 2 Vital Signs (Past 24 Hours): Last Vital Signs Temp 36.7 C 01/10/19 06:50 Pulse 80 01/10/19 06:50 Resp 18 01/10/19 06:50 BP 142/90 H 01/10/19 06:50 Pulse Ox 96 01/10/19 06:50 Physical Exam: Sitting upright. Obese female in NAD. Constitutional: WD/WN, vitals as above Respiratory: normal respiratory effort; no respiratory distress and no labored breathing Cardiovascular: Rate/Rhythm: regular rate and regular rhythm Extremities: + pedal edema (mild, stable from pre op) Chest (Breasts): Additional Comments: Lactating. Equal size bilaterally, no nipple cracks or sores. Gastrointestinal (Abdomen): Obese, soft. Appropriately tender post op. Incision with dressing c/d/intact. RLQ VANESSA drain recently emptied of 30cc sanguineous fluid. Psychiatric: A+Ox3, euthymic affect _ (1) Rectus sheath hematoma Encounter type: initial encounter Qualified Code(s): S30.1XXA - Contusion of abdominal wall, initial encounter
[2019-01-10] MEDS: LABETALOL HCL 100 MG TAB PO SCH ×2 (08:02→20:08)
[2019-01-10] MEDS: PRENATAL VITAMIN 1 TAB PO SCH (08:02)
[2019-01-10] MEDS: OMEPRAZOLE 20 MG CAPCR PO SCH (08:03)
[2019-01-10 08:13] LABS: Basophils # (auto) 0.01 K/uL (0-0.2); Basophils % (auto) 0.1 %; Hemoglobin 11.1 g/dL (12.0-16.0); Immature Granulocytes # (auto) 0.04 K/uL (0.00-0.02); Immature Granulocytes % (auto) 0.3 %; Lymphocytes % (auto) 6.6 %; Mean Corpuscular Hgb Conc 33.6 g/dL (32-36); Mean Corpuscular Volume 94.3 fL (80-100); Mean Platelet Volume 9.3 fL (7.4-10.4); Monocytes # (auto) 0.09 K/uL (0.11-0.59); Monocytes % (auto) 0.7 %; Neutrophils # (auto) 12.57 K/uL (1.4-6.5); Neutrophils % (auto) 92.3 %; Platelet Count 283 K/uL (130-400); RDW Coefficient of Variation 13.5 % (11.5-14.5); RDW Standard Deviation 46.7 fL (36.4-46.3); White Blood Count 13.61 K/uL (4.8-10.8)
[2019-01-10] MEDS: IBUPROFEN 600 MG TAB PO PRN ×3 (08:19→20:07)
[2019-01-10] MEDS: HYDROCODONE/ACETAMOPHEN 5/325MG TAB PO PRN ×3 (08:37→20:07)
[2019-01-11] MEDS: HYDROCODONE/ACETAMOPHEN 5/325MG TAB PO PRN ×2 (01:56→08:12)
[2019-01-11] MEDS: IBUPROFEN 600 MG TAB PO PRN ×2 (01:56→08:14)
--- NOTE | 2019-01-11 08:22 | Obstetrical Progress Note ---
Date of Service January 11, 2019 Assessment & Plan (1) Abdominal wall hematoma: POD#1 s/p evacuation of hematoma. Doing well. Will plan for discharge home today. VANESSA drain had 70cc output over past 24h, will leave VANESSA in for now with goal of 30cc or less output over 24h period. Will followup in office Wednesday for removal. Has appointment for incision check/brigitte removal next week with Dr Zarate. Subjective 38yo POD#1 s/p evacuation of hematoma. Doing well, is sitting in chair, breast pumping. Is ambulating well. Pain is controlled - is taking norco and this is working well. She is tolerating PO. Is looking forward to being discharged home. VANESSA Drain output 70cc serosanguinous fluid. Physical Exam 2 Vital Signs (Past 24 Hours): Last Vital Signs Temp 37.4 C 01/11/19 03:45 Pulse 73 01/11/19 03:45 Resp 18 01/11/19 03:45 BP 119/72 01/11/19 03:45 Pulse Ox 95 01/10/19 15:20 Physical Exam: Gen: AAOx3 NAD CV: [id number] L: CTAB Abd: soft, NTTP. Incision: brigitte, C/D/I Ext: no edema.
[2019-01-11] MEDS: LABETALOL HCL 100 MG TAB PO SCH (09:17)
[2019-01-11] MEDS: PRENATAL VITAMIN 1 TAB PO SCH (09:17)
[2019-01-11] MEDS: OMEPRAZOLE 20 MG CAPCR PO SCH (09:30)
--- NOTE | 2019-01-17 07:49 | Discharge Summary ---
Date of Service January 17, 2019 Discharge Data Consultations 01/10/19 01:04 Consult General Surgery Stat Consult Obstetrics Stat 01/10/19 01:38 Consult Anesthesiology Stat 01/10/19 01:39 ED Decision to Admit Stat Procedures Performed Operation Date: 01/10/19 02:00 Actual Procedures p Exploratory Laparotomy with Evacuation of Rectus Sheath Hematoma and Ligation of Bleeding Vessels(Not Applicable) - Savannah Ko MD Hospital Course (1) Rectus sheath hematoma: Chelsey was admitted and taken to OR for exploratory laparotomy and evacuation of rectus sheath hematoma and ligation of bleeding vessel. A VANESSA and Snow drain were placed, and she was taken to 4th floor unit in early AM POD0 for post operative recovery. She was discharged home on POD1 with drain to be removed in office on POD3.
== END 2019-01-11 10:10 | disposition home or self-care (01) | DRG 769 ==
LOC: ED 23:10 → 4N 01-10 02:52 → OR 01-10 02:52 → 4N 01-10 03:00 → OBSVTOIN 01-10 04:24 → SUATTDRO 01-10 04:24